=== PATIENT | female | born 1985 | race Caucasian/White ===

== ENCOUNTER 2019-09-24 13:32 | Emergency (ER) | payer OTHER, SELFPAY ==
[2019-09-24 14:53] VITALS: BP 144/98; PULSE 98; RESP 19; TEMP 36.8; O2SAT 98; BMI 49.4
[2019-09-24 14:58] LABS: UTC Strep Screen (Rapid) Negative (Negative)
--- NOTE | 2019-09-24 15:05 | HMH.EDUTC ---
[facility] [place] Clinical Impression: Sinusitis Qualifiers: Sinusitis location: unspecified location Chronicity: unspecified Qualified Code(s): J32.9 - Chronic sinusitis, unspecified Disposition: Home, Self-Care Condition on Discharge: Good Instructions: Sinusitis, Sinus Headache, DI for Sinusitis, Amoxicillin and Clavulanic Acid Additional Instructions: *Monitor Temp, Over the counter Motrin or Tylenol as directed/as needed Tylenol every 4 hours and Motrin every 6 hours (as long as your family doctor has told you that you can take it) for fever or pain. and straight to ER if unable to lower temp less than 101.0 after medication given *Warm salt water gargles may help to soothe the throat *Throat Lozenges *Warm fluids like tea with honey may help to soothe the throat *Sleep elevated *Humidifier/Vaporizer Take medication as prescribed Call back to [facility] for results on your COVID test, Tomorrow or Saturday to see if you test results are back You was given handout with instructions for Quarantine for COVID 19 make sure that you follow those instructions Your throat swab was sent for culture. Those results are typically sent to your primary care. Be sure to follow up in 2-3 days with your family doctor/primary care physician if no improvement so they can review those result and treat if necessary. If you don?t have a primary care doctor, I recommend you get one but in the mean time, you will have to return to a walk in clinic Follow up IMMEDIATELY for new or worsening symptoms or no Noticeable improvement over the next 48-72 hours. 911 for difficulty breathing or swallowing Prescriptions: Amoxicillin/Potassium Clav [Augmentin 875-125 Tablet] 1 tab PO Q12H #1 tab Transmission Status: Pending to [id number] Fluticasone Propionate [Flonase 50mcg nasal spray 16gm] 1 - 2 spr NS DAILY #1 bottle Transmission Status: Pending to [id number] Referrals: Savana Tejeda APRN [Primary Care Provider] - As needed Time of Disposition: 15:15 Medical Decision Making - Jaime Inquiry Pt receiving controlled substance: No Jaime was queried for this patient: No Vital Signs: 09/24/19 14:53 Temperature 98.2 F Temperature Source Oral Pulse Rate [Right Brachial] 98 H Respiratory Rate 19 Blood Pressure [Right Arm] 144/98 H Blood Pressure Mean [Right Arm] 113 Blood Pressure Source [Right Arm] Automatic Cuff Blood Pressure Position [Right Arm] Sitting 02 Sat by Pulse Oximetry 98 Oxygen Delivery Method Room Air - Lab Data Lab results reviewed: Yes: I reviewed the patient's lab results. Lab Results 09/24/19 14:58: Strep Scn Rapid Clinic Negative Orders (Tests/Meds): ORDERS Category Date Time Status Strep Screen Confirmation Stat Micro 09/24/19 14:58 [place] [facility] [place] - General Stated complaint: sore throat runny nose cough ear pain Time Seen by Provider: 09/24/19 15:05 Mode of Arrival: Ambulatory Source of Information: Patient Limitations: No Limitations Description of Symptoms (Recalled from Triage Doc. by RN): PATIENT C/O SORE THROAT, RUNNY NOSE, AND BILATERAL EAR PAIN SINCE YESTERDAY HEENT Symptoms (Recalled from RN notes): Yes Resp Symptoms (Recalled from RN notes): No Skin Symptoms (Recalled from RN notes): No MS Symptoms (Recalled from RN notes): No Functional Status (Recalled from RN notes): WNL - History of Present Illness Provider Complaint: Patient states that she hasnt been feeling well for several days and continued to get worse States that today her throat is worse and feels like she may have strep States that she is having pain and pressure in her sinuses and today she was having some nausea and headache States that she hasnt been around anyone with COVID that she is aware of - Related Data Previous Rx's Medication Instructions Recorded fluticasone propionate 50 1 spray INTRANASAL DAILY #9.9 g 04/17/18 mcg/actuation nasal spray,suspension montelukast 10 mg tablet
[2019-09-24 15:23] VITALS: BP 144/98; PULSE 98; RESP 19; TEMP 36.8; O2SAT 98
[2019-09-26 12:56] LABS: Covid-19 Nasal PCR Sendout Lex Not Detected
== END 2019-09-24 15:30 | disposition home or self-care (01) ==
PROVIDERS: Emergency Provider Nurse Practitioner; PCP Nurse Practitioner Family
DX: J32.9 Chronic sinusitis, unspecified (principal)
CPT/HCPCS: 87880; 99202; U0004

== ENCOUNTER 2021-03-14 11:00 | Outpatient (RCR) | payer OTHER, SELFPAY | END 2021-04-17 08:28 | disposition home or self-care (01) | LOC: PT.CARL 11:00 | PROVIDERS: PCP Nurse Practitioner Family; Visit Provider Orthopaedic Surgery Adult Reconstructive Orthopaedic Surgery | DX: S83.206D Unspecified tear of unspecified meniscus, current injury, right knee, subsequent encounter (principal) | CPT/HCPCS: 97010; 97014; 97110; 97163; 97164; G0283 ==

== ENCOUNTER 2022-02-07 10:44 | Emergency (ER) | payer OTHER, SELFPAY ==
[2022-02-07 11:50] VITALS: BP 149/92; PULSE 101; RESP 18; TEMP 36.6; O2SAT 98; BMI 51.1
--- NOTE | 2022-02-07 12:15 | EXP.UTC ---
Discharge Plan Disposition Patient Disposition: Home, Self-Care Condition: Good Prescriptions Prescriptions: New oseltamivir [Tamiflu] 75 mg capsule 75 mg PO BID 5 Days Qty: 10 0RF No Action metformin 500 mg Tablet 500 mg PO DAILY atorvastatin 20 mg tablet 20 mg PO DAILY hydrochlorothiazide 12.5 mg capsule 12.5 mg PO DAILY oxybutynin chloride 5 mg tablet extended release 24hr 5 mg PO DAILY losartan 100 mg tablet 100 mg PO DAILY Referrals Follow up/Referrals: Provider,Referral, MD [Primary Care Provider] - See instructions Activity Restrictions/Add. Instructions Additional Instructions/Restrictions: *Monitor Temp, Over the counter Motrin or Tylenol as directed/as needed Tylenol every 4 hours and Motrin every 6 hours (as long as your family doctor has told you that you can take it) for fever or pain. and straight to ER if unable to lower temp less than 101.0 after medication given *Warm salt water gargles may help to soothe the throat *Throat Lozenges? *Warm fluids like tea with honey may help to soothe the throat? *Sleep elevated *Humidifier/Vaporizer Over the counter cough medication like Robitussin if you can take it for cough Follow up IMMEDIATELY for new or worsening symptoms or no Noticeable improvement over the next 48-72 hours. 911 for difficulty breathing or swallowing Clinical Impressions Clinical Impression: Flu-like symptoms Instructions Patient Instructions: DI for Influenza -- Adult, DI for Viral Syndrome Discharge ED Provider: Mayra Hair [facility] General Stated complaint: body aches, ear pain, CHATTERJEE Mode of Arrival: Ambulatory Source of Information: Patient Limitations: No Limitations Time Seen by Provider: 02/07/22 12:15 Description of Symptoms (Recalled from Triage Doc. by RN): PATIENT C/O BILATERAL EAR PAIN, BODY ACHES, AND HEADACHE SINCE YESTERDAY. RECENTLY EXPOSED TO FLU HEENT Symptoms (Recalled from RN notes): Yes Resp Symptoms (Recalled from RN notes): No Skin Symptoms (Recalled from RN notes): No MS Symptoms (Recalled from RN notes): No Functional Status (Recalled from RN notes): WNL History of Present Illness Provider Complaint: Patient state that he child was dx with the flu on Saturday States that she has been having body aches, chills, bilateral ear pain, body aches, cough and vomiting on and off States that today she was feeling worse so she came in to get checked out Related Data Home Medications Medication Instructions Recorded Confirmed atorvastatin 20 mg tablet 20 mg PO DAILY Cholesterol 02/07/22 02/07/22 hydrochlorothiazide 12.5 mg capsule 12.5 mg PO DAILY Hypertension 02/07/22 02/07/22 losartan 100 mg tablet 100 mg PO DAILY Hypertension 02/07/22 02/07/22 metformin 500 mg tablet 500 mg PO DAILY Diabetes 02/07/22 02/07/22 oxybutynin chloride 5 mg 5 mg PO DAILY . 02/07/22 02/07/22 tablet,extended release 24 hr Previous Rx's Medication Instructions Recorded oseltamivir 75 mg capsule (Tamiflu) 75 mg PO BID 5 days #10 caps 02/07/22 Allergies Allergy/AdvReac Type Severity Reaction Status Date / Time No Known Allergies Allergy Verified 09/24/19 15:06 Worker's Comp Is this a Worker's Comp case?: No [facility] Disclaimer: The information contained in this section may have been updated after the patient was seen, as this information can be updated by other users. Medical History (Updated 02/07/22 @ 12:43 by Mayra Hair APRN) Diabetes mellitus, type 2 Hypertension Surgical History (Updated 02/07/22 @ 12:11 by Wanda Prater RN) History of cholecystectomy Social History (Updated 02/07/22 @ 12:11 by Wanda Prater RN) Smoking Status: Never smoker alcohol intake: never current occupational status: other Travel in the last 8 weeks: None ROS Obtained: Yes All systems reviewed & no additional complaints except as documented and Yes Systems reviewed as appropriat
[2022-02-07 12:23] LABS: UTC Influenza A Antigen Negative (Negative); UTC Influenza B Antigen Negative (Negative)
[2022-02-07 12:46] VITALS: BP 149/92; PULSE 101; RESP 18; TEMP 36.6; O2SAT 98
== END 2022-02-07 12:58 | disposition home or self-care (01) ==
PROVIDERS: Emergency Provider Nurse Practitioner
DX: J11.1 Influenza due to unidentified influenza virus with other respiratory manifestations (principal); R52 Pain, unspecified; H92.09 Otalgia, unspecified ear; R51.9 Headache, unspecified
CPT/HCPCS: 87804; 99212; G0463

== ENCOUNTER 2022-04-10 09:23 | Emergency (ER) | payer OTHER, SELFPAY ==
[2022-04-10 09:40] VITALS: BP 121/76; PULSE 74; RESP 18; TEMP 36.4; O2SAT 99; BMI 52.2
--- NOTE | 2022-04-10 10:01 | EXP.UTC ---
Discharge Plan Disposition Patient Disposition: Home, Self-Care Condition: Good Prescriptions Prescriptions: New amoxicillin 875 mg tablet 875 mg PO Q12H 10 Days Qty: 20 0RF No Action metformin 500 mg Tablet 500 mg PO DAILY atorvastatin 20 mg tablet 20 mg PO DAILY hydrochlorothiazide 12.5 mg capsule 12.5 mg PO DAILY oxybutynin chloride 5 mg tablet extended release 24hr 5 mg PO DAILY losartan 100 mg tablet 100 mg PO DAILY oseltamivir [Tamiflu] 75 mg capsule 75 mg PO BID 5 Days Qty: 10 0RF ondansetron 4 mg tablet,disintegrating 4 mg PO Q8H PRN (Reason: nausea and vomiting) Qty: 10 0RF Referrals Follow up/Referrals: Iain Alvarez MD [Primary Care Provider] - See instructions Activity Restrictions/Add. Instructions Additional Instructions/Restrictions: *Monitor Temp, Over the counter Motrin or Tylenol as directed/as needed Tylenol every 4 hours and Motrin every 6 hours (as long as your family doctor has told you that you can take it) for fever or pain. and straight to ER if unable to lower temp less than 101.0 after medication given *Warm salt water gargles may help to soothe the throat *Throat Lozenges? *Warm fluids like tea with honey may help to soothe the throat? *Sleep elevated *Humidifier/Vaporizer *If you did not take Penicillin shot or was unable to, start taking antibiotic immediately and make sure that you take it for the FULL length of time although you should start to feel better in 24-48 hours *change toothbrush and toothpaste 24-48 hours after starting to take antibiotics so you do not reinfect yourself Monitor Temp. Tylenol and/or Ibuprofen as needed. ER if fever is no less than 101 despite alternating Tylenol and Ibuprofen * Encourage fluids, water, Gatorade, powerade, pedialyte if /toddler/or child *Cold fluids, popsicles and ice cream may feel good on his throat Follow up IMMEDIATELY for new or worsening symptoms or no Noticeable improvement over the next 48-72 hours. 911 for difficulty breathing or swallowing Clinical Impressions Clinical Impression: Strep throat Instructions Patient Instructions: DI for Strep Throat, Strep Throat Discharge ED Provider: Mayra Hair [facility] [place] HPI General Stated complaint: Ear pain sore throat headache Mode of Arrival: Ambulatory Source of Information: Patient Limitations: No Limitations Time Seen by Provider: 04/10/22 10:02 Description of Symptoms (Recalled from Triage Doc. by RN): PATIENT C/O EAR PAIN, HEADACHE, ITCHY EYES AND SORE THROAT SINCE YESTERDAY HEENT Symptoms (Recalled from RN notes): Yes Resp Symptoms (Recalled from RN notes): No Skin Symptoms (Recalled from RN notes): No MS Symptoms (Recalled from RN notes): No Functional Status (Recalled from RN notes): WNL History of Present Illness Provider Complaint: Patient states that she has been having pain in both ears, sore throat and headache along with itchy watery eyes States that this morning she was still not feeling any better so she came in Related Data Home Medications Medication Instructions Recorded Confirmed atorvastatin 20 mg tablet 20 mg PO DAILY Cholesterol 02/07/22 02/07/22 hydrochlorothiazide 12.5 mg capsule 12.5 mg PO DAILY Hypertension 02/07/22 02/07/22 losartan 100 mg tablet 100 mg PO DAILY Hypertension 02/07/22 04/10/22 metformin 500 mg tablet 500 mg PO DAILY Diabetes 02/07/22 04/10/22 oxybutynin chloride 5 mg 5 mg PO DAILY . 02/07/22 02/07/22 tablet,extended release 24 hr Previous Rx's Medication Instructions Recorded ondansetron 4 mg disintegrating 4 mg PO Q8H PRN nausea and 02/07/22 tablet vomiting #10 tabs oseltamivir 75 mg capsule (Tamiflu) 75 mg PO BID 5 days #10 caps 02/07/22 amoxicillin 875 mg tablet 875 mg PO Q12H 10 days #20 tabs 04/10/22 Allergies Allergy/AdvReac Type Severity Reaction Status Date / Time No Known Allergies Allergy Verified 09/24/19 15:06 Worker's Co
[2022-04-10 10:07] VITALS: BP 121/76; PULSE 74; RESP 18; TEMP 36.4; O2SAT 99
[2022-04-10 10:08] LABS: UTC Strep Screen (Rapid) Positive (Negative)
== END 2022-04-10 10:17 | disposition home or self-care (01) ==
PROVIDERS: Emergency Provider Nurse Practitioner; PCP Family Medicine
DX: J02.0 Streptococcal pharyngitis (principal)
CPT/HCPCS: 87880; 99212; 99213; G0463

== ENCOUNTER → 2022-05-22 13:37 | Outpatient (CLI) | payer OTHER, SELFPAY | PROVIDERS: PCP Nurse Practitioner Family; Visit Provider Nurse Practitioner Family | DX: R11.2 Nausea with vomiting, unspecified (principal); B96.29 Other Escherichia coli [E. coli] as the cause of diseases classified elsewhere; B96.1 Klebsiella pneumoniae [K. pneumoniae] as the cause of diseases classified elsewhere | CPT/HCPCS: 87086; 87088; 87186 ==

== ENCOUNTER → 2022-05-22 23:41 | Outpatient (CLI) | payer OTHER, SELFPAY | PROVIDERS: PCP Nurse Practitioner Family; Visit Provider Nurse Practitioner Family | DX: R11.2 Nausea with vomiting, unspecified (principal) ==

== ENCOUNTER → 2022-06-12 17:25 | Outpatient (CLI) | payer OTHER, SELFPAY ==
[2022-06-12 16:38] LABS: Basophils # 0.1 K/mm3 (0-0.2); Basophils % 1.2 % (0.1-2.0); Eosinophils # 0.3 K/mm3 (0.0-0.4); Eosinophils % 3.3 % (0.1-12.0); Hematocrit 40.9 % (37.0-47.0); Hemoglobin 13.4 g/dL (12.2-16.2); Lymphocytes # 2.2 K/mm3 (0.7-4.5); Lymphocytes % 26.6 % (10-50); Mean Corpuscular HGB Conc 32.6 g/dL (31.8-35.4); Mean Corpuscular Hemoglobin 31.2 pg (27.0-31.2); Mean Corpuscular Volume 95.5 fl (81-99); Mean Platelet Volume 8.1 fl (7.4-10.4); Monocytes # 0.5 K/mm3 (0.1-1.0); Monocytes % 5.5 % (1.7-9.3); Neutrophils # 5.3 K/mm3 (1.8-7.8); Neutrophils % 63.4 % (37.0-80.0); Platelet Count 349 K/mm3 (142-424); Red Blood Count 4.29 M/mm3 (4.20-5.40); Red Cell Distribution Width 13.6 % (11.5-17.5); White Blood Count 8.3 K/mm3 (4.8-10.8)
[2022-06-12 16:42] LABS: Alanine Aminotransferase 49 U/L (12-78); Albumin Level 4.7 g/dl (3.5-5.0); Albumin/Globulin Ratio 1.6 (1.1-1.8); Alkaline Phosphatase 110 U/L (38-126); Anion Gap 16.4 mEq/L (5-15); Aspartate Amino Transferase 47 U/L (14-36); Bilirubin,Total 0.6 mg/dl (0.2-1.3); Blood Urea Nitrogen 12 mg/dl (7-17); Calcium 9.2 mg/dl (8.4-10.2); Carbon Dioxide 23 mmol/L (22.0-30.0); Chloride 102 mmol/L (98-107); Cholesterol 104 mg/dl (140-200); Estimated Glomerular Filt Rate 81 ml/min (>60); GFR (African American) 98 ML/MIN (>60); Globulin 2.9 g/dL (1.3-3.2); Glucose 141 mg/dl (74-100); HDL Cholesterol 35 mg/dl (40-60); Potassium 4.4 mmoL/L (3.5-5.1); Sodium 137 mmol/L (136-145); Total Protein,Serum 7.6 g/dl (6.3-8.2); Triglycerides 164 mg/dl (30-150); VLDL Cholesterol 33 mg/dL (0-40)
[2022-06-12 16:53] LABS: Direct LDL Cholesterol 55.77 mg/dL (100-129)
[2022-06-12 17:06] LABS: Hemoglobin A1C 7.3 % (4.0-6.0)
[2022-06-12 17:12] LABS: Thyroid Stimulating Hormone 1.31 uIU/mL (0.465-4.68)
== END ==
PROVIDERS: PCP Family Medicine; Visit Provider Family Medicine
DX: E11.9 Type 2 diabetes mellitus without complications (principal); I10 Essential (primary) hypertension; Z79.84 Long term (current) use of oral hypoglycemic drugs
CPT/HCPCS: 80053; 80061; 83036; 84443; 85025

== ENCOUNTER → 2022-08-03 23:22 | Outpatient (CLI) | payer OTHER, SELFPAY | PROVIDERS: PCP Nurse Practitioner Family; Visit Provider Nurse Practitioner Family | DX: R10.9 Unspecified abdominal pain (principal); B96.29 Other Escherichia coli [E. coli] as the cause of diseases classified elsewhere; B96.89 Other specified bacterial agents as the cause of diseases classified elsewhere | CPT/HCPCS: 87086; 87088; 87186 ==

== ENCOUNTER 2023-01-23 08:40 | Emergency (ER) | payer OTHER, SELFPAY ==
--- NOTE | 2023-01-23 08:43 | XR_ITS ---
FINAL REPORT CLINICAL HISTORY: pain, no known accident FINDINGS: Right ankle Three views were obtained. There is no acute fracture or dislocation. The joint spaces appear normal. There is soft tissue edema about the ankle. Moderate plantar spur is identified. IMPRESSION: Soft tissue edema and moderate plantar spur. Reviewed, Interpreted and Dictated by Олег Snell MD Transcribed by Audrey Martinez Authenticated and . [facility]
[2023-01-23 08:50] VITALS: BP 159/97; PULSE 83; RESP 18; TEMP 36.8; O2SAT 100; BMI 52.2
--- NOTE | 2023-01-23 09:28 | EXP.UTC ---
Discharge Plan Disposition Patient Disposition: Home, Self-Care Condition: Good Prescriptions Prescriptions: New prednisone [prednisone] 20 mg tablet 20 mg PO BID Qty: 10 0RF No Action hydrochlorothiazide 12.5 mg capsule 12.5 mg PO DAILY Qty: 30 4RF triamcinolone acetonide 0.5 % cream 1 applic topical BID Qty: 15 2RF losartan 100 mg tablet 100 mg PO DAILY Qty: 30 2RF ondansetron 4 mg tablet,disintegrating 4 mg PO Q8H PRN (Reason: nausea and vomiting) Qty: 20 1RF ibuprofen 600 mg tablet See Rx Instructions .ROUTE .COMPLEX Qty: 90 0RF Dose Instruction: TAKE 1 TABLET BY MOUTH THREE TIMES A DAY Rx Instructions: TAKE 1 TABLET BY MOUTH THREE TIMES A DAY cetirizine 10 mg tablet See Rx Instructions .ROUTE .COMPLEX Qty: 30 1RF Dose Instruction: TAKE 1 TABLET BY MOUTH DAILY NEEDED FOR ALLERGY SYMPTOMS FOR 30 DAYS Rx Instructions: TAKE 1 TABLET BY MOUTH DAILY NEEDED FOR ALLERGY SYMPTOMS FOR 30 DAYS acetaminophen 325 mg tablet See Rx Instructions .ROUTE .COMPLEX Qty: 120 0RF Dose Instruction: TAKE 2 TABLETS BY MOUTH FOUR TIMES A DAY NEEDED FOR PAIN Rx Instructions: TAKE 2 TABLETS BY MOUTH FOUR TIMES A DAY NEEDED FOR PAIN oxybutynin chloride 5 mg tablet extended release 24hr See Rx Instructions .ROUTE .COMPLEX Qty: 30 0RF Dose Instruction: TAKE 1 TABLET BY MOUTH ONCE DAILY Rx Instructions: TAKE 1 TABLET BY MOUTH ONCE DAILY tizanidine 4 mg tablet See Rx Instructions .ROUTE .COMPLEX Qty: 20 0RF Dose Instruction: TAKE 1 TABLET BY MOUTH TWICE DAILY NEEDED FOR MUSCLE SPASMS Rx Instructions: TAKE 1 TABLET BY MOUTH TWICE DAILY NEEDED FOR MUSCLE SPASMS colestipol 1 gram tablet See Rx Instructions .ROUTE .COMPLEX Qty: 60 0RF Dose Instruction: TAKE 1 TABLET BY MOUTH TWICE A DAY FOR 30 DAYS Rx Instructions: TAKE 1 TABLET BY MOUTH TWICE A DAY FOR 30 DAYS metformin 500 mg tablet extended release 24 hr See Rx Instructions .ROUTE .COMPLEX Qty: 120 0RF Dose Instruction: TAKE 2 TABLETS TWICE A DAY FOR DIABETES FOR 30 DAYS Rx Instructions: TAKE 2 TABLETS TWICE A DAY FOR DIABETES FOR 30 DAYS atorvastatin 20 mg tablet See Rx Instructions .ROUTE .COMPLEX Qty: 30 0RF Dose Instruction: TAKE 1 TABLET BY MOUTH AT BEDTIME NIGHTLY FOR 30 DAYS Rx Instructions: TAKE 1 TABLET BY MOUTH AT BEDTIME NIGHTLY FOR 30 DAYS Referrals Follow up/Referrals: Edi Rees MD [Primary Care Provider] - See instructions Activity Restrictions/Add. Instructions Additional Instructions/Restrictions: Weight bearing as tolerated rest Ice with cold pack for 20 minutes remove may repeat for comfort every hour Elevate with ankle above your heart as much as possible to help reduce swelling and therefore pain Ibuprofen every 6 hours as needed for pain or inflammation. If needs something more you can take Tylenol every 4 hours as needed as long as her primary care has told he was okayed for you to take both. If improving any do not need to follow-up you can bring begin exercising 2-3 weeks after injury. Follow-up immediately if new or worsening symptoms or no noticeable improvement over the next 3-5 days. call ortho for appointment Clinical Impressions Clinical Impression: Acute ankle pain Qualifiers: Laterality: right Qualified Code(s): M25.571 - Pain in right ankle and joints of right foot Instructions Patient Instructions: DI for Ankle Pain Discharge ED Provider: Amilcar ([facility])Dante [facility] [place] General Stated complaint: Rt ankle pain, no accident Mode of Arrival: Ambulatory Source of Information: Patient Limitations: No Limitations Time Seen by Provider: 01/23/23 09:28 Description of Symptoms (Recalled from Triage Doc. by RN): Pt stated that her right ankle if very tight and feels like she cannot put a whole lot of weight on it. HEENT Symptoms (Recalled from RN notes): Y
[2023-01-23 10:00] VITALS: BP 159/97; PULSE 83; RESP 18; TEMP 36.8; O2SAT 100
== END 2023-01-23 10:00 | disposition home or self-care (01) ==
PROVIDERS: Emergency Provider Nurse Practitioner Family; PCP Family Medicine
DX: M25.571 Pain in right ankle and joints of right foot (principal); E11.9 Type 2 diabetes mellitus without complications; I10 Essential (primary) hypertension; Z79.84 Long term (current) use of oral hypoglycemic drugs
CPT/HCPCS: 73610; 99212; 99214; G0463

== ENCOUNTER → 2023-01-28 16:00 | Outpatient (CLI) | payer OTHER, SELFPAY | PROVIDERS: PCP Nurse Practitioner Family; Visit Provider Nurse Practitioner Family | DX: R05.9 Cough, unspecified (principal) | CPT/HCPCS: 87635 ==

== ENCOUNTER 2023-04-12 22:14 | Outpatient (CLI) | payer OTHER, SELFPAY | END 2023-04-12 23:59 | LOC: LAB.DROPOF 22:14 | PROVIDERS: PCP Nurse Practitioner Family; Visit Provider Nurse Practitioner Family | DX: R10.9 Unspecified abdominal pain (principal); B96.89 Other specified bacterial agents as the cause of diseases classified elsewhere | CPT/HCPCS: 87086 ==

== ENCOUNTER 2023-05-30 18:59 | Outpatient (CLI) | payer OTHER, SELFPAY ==
[2023-05-30 16:34] LABS: Chloride 103 mmol/L (98-107); Potassium 4.6 mmoL/L (3.5-5.1); Sodium 138 mmol/L (136-145)
[2023-05-30 16:36] LABS: Blood Urea Nitrogen 28 mg/dl (7-17); Estimated Glomerular Filt Rate 30 ml/min (>60); GFR (African American) 36 ML/MIN (>60)
[2023-05-30 16:37] LABS: Alanine Aminotransferase 27 U/L (12-78); Albumin Level 4.3 g/dl (3.5-5.0); Albumin/Globulin Ratio 1.3 (1.1-1.8); Alkaline Phosphatase 139 U/L (38-126); Anion Gap 17.6 mEq/L (5-15); Aspartate Amino Transferase 23 U/L (14-36); Bilirubin,Total 1.2 mg/dl (0.2-1.3); Carbon Dioxide 22 mmol/L (22.0-30.0); Globulin 3.3 g/dL (1.3-3.2); Glucose 165 mg/dl (74-100); Total Protein,Serum 7.6 g/dl (6.3-8.2)
[2023-05-30 16:39] LABS: Basophils # 0.2 K/mm3 (0-0.2); Basophils % 1.3 % (0.1-2.0); Eosinophils # 0.1 K/mm3 (0.0-0.4); Eosinophils % 0.6 % (0.1-12.0); Hematocrit 38.1 % (37.0-47.0); Hemoglobin 12.1 g/dL (12.2-16.2); Lymphocytes # 2.2 K/mm3 (0.7-4.5); Lymphocytes % 16.1 % (10-50); Mean Corpuscular HGB Conc 31.9 g/dL (31.8-35.4); Mean Corpuscular Hemoglobin 31.9 pg (27.0-31.2); Mean Corpuscular Volume 99.9 fl (81-99); Mean Platelet Volume 8.9 fl (7.4-10.4); Monocytes # 0.8 K/mm3 (0.1-1.0); Monocytes % 5.4 % (1.7-9.3); Neutrophils # 10.6 K/mm3 (1.8-7.8); Neutrophils % 76.6 % (37.0-80.0); Platelet Count 362 K/mm3 (142-424); Red Blood Count 3.81 M/mm3 (4.20-5.40); Red Cell Distribution Width 14.3 % (11.5-17.5); White Blood Count 13.8 K/mm3 (4.8-10.8)
[2023-05-30 17:05] LABS: Thyroid Stimulating Hormone 1.39 uIU/mL (0.465-4.68)
[2023-05-30 19:08] LABS: Hemoglobin A1C 7.6 % (4.0-6.0)
== END 2023-05-30 23:59 ==
LOC: LAB.DROPOF 18:59
PROVIDERS: PCP Nurse Practitioner Family; Visit Provider Nurse Practitioner Family
DX: N39.0 Urinary tract infection, site not specified (principal); M54.50 Low back pain, unspecified; E11.69 Type 2 diabetes mellitus with other specified complication; B96.29 Other Escherichia coli [E. coli] as the cause of diseases classified elsewhere; B96.1 Klebsiella pneumoniae [K. pneumoniae] as the cause of diseases classified elsewhere; Z79.899 Other long term (current) drug therapy
CPT/HCPCS: 80053; 83036; 84443; 85025; 87086

== ENCOUNTER 2023-05-31 10:37 | Emergency (ER) | payer OTHER, SELFPAY ==
[2023-05-31 10:39] VITALS: BP 120/68; PULSE 95; RESP 15; TEMP 36.9; O2SAT 98; BMI 47.1
[2023-05-31 10:53] LABS: Microscopic, Urine URINE MICROSCOPIC (MICROSCOPIC)
[2023-05-31 10:55] LABS: Appearance,Urine CLOUDY (Clear); Blood, Urine 1+ (Negative); Color,Urine YELLOW (Yellow); Glucose,Urine (UA) Negative (Negative); Ketones,Urine Negative (Negative); Leukocyte Esterase,Urine 2+ (Negative); Nitrate,Urine Negative (Negative); Protein,Urine 2+ (Negative); Specific Gravity, Urine 1.025 (1.005-1.030); Urobilinogen,Urine 0.2 EU/dl (0.2)
--- NOTE | 2023-05-31 10:57 | HMH.EDGENADL ---
Discharge Plan Disposition Patient Disposition: Xfer Other Chief Complaint: Nausea/Vomiting/Diarrhea Prescriptions Prescriptions: No Action hydrochlorothiazide 12.5 mg capsule 12.5 mg PO DAILY Qty: 30 4RF albuterol sulfate 90 mcg/actuation HFA aerosol inhaler 1 inh inhalation QID Qty: 6.7 2RF fluconazole 150 mg tablet 150 mg PO Q3D 0 Days Qty: 2 0RF Rx Instructions: may repeat second dose 72 hrs after first dose if symptoms persist sulfamethoxazole-trimethoprim [Bactrim DS] 800-160 mg tablet 1 tab PO BID 10 Days Qty: 20 0RF levocetirizine 5 mg tablet 5 mg PO DAILY Qty: 30 2RF oxybutynin chloride 5 mg tablet extended release 24hr See Rx Instructions .ROUTE .COMPLEX Qty: 30 1RF Dose Instruction: TAKE 1 TABLET BY MOUTH ONCE DAILY Rx Instructions: TAKE 1 TABLET BY MOUTH ONCE DAILY colestipol 1 gram tablet See Rx Instructions .ROUTE .COMPLEX Qty: 60 1RF Dose Instruction: TAKE 1 TABLET BY MOUTH TWICE A DAY FOR 30 DAYS Rx Instructions: TAKE 1 TABLET BY MOUTH TWICE A DAY FOR 30 DAYS acetaminophen 325 mg tablet See Rx Instructions .ROUTE .COMPLEX Qty: 120 1RF Dose Instruction: TAKE 2 TABLETS BY MOUTH FOUR TIMES A DAY NEEDED FOR PAIN Rx Instructions: TAKE 2 TABLETS BY MOUTH FOUR TIMES A DAY NEEDED FOR PAIN tizanidine 4 mg tablet See Rx Instructions .ROUTE .COMPLEX Qty: 20 1RF Dose Instruction: TAKE 1 TABLET BY MOUTH TWICE DAILY NEEDED FOR MUSCLE SPASMS Rx Instructions: TAKE 1 TABLET BY MOUTH TWICE DAILY NEEDED FOR MUSCLE SPASMS atorvastatin 20 mg tablet See Rx Instructions .ROUTE .COMPLEX Qty: 30 1RF Dose Instruction: TAKE 1 TABLET BY MOUTH AT BEDTIME NIGHTLY FOR 30 DAYS Rx Instructions: TAKE 1 TABLET BY MOUTH AT BEDTIME NIGHTLY FOR 30 DAYS metformin 500 mg tablet extended release 24 hr See Rx Instructions .ROUTE .COMPLEX Qty: 120 1RF Dose Instruction: TAKE 2 TABLETS TWICE A DAY FOR DIABETES FOR 30 DAYS Rx Instructions: TAKE 2 TABLETS TWICE A DAY FOR DIABETES FOR 30 DAYS losartan 100 mg tablet 100 mg PO DAILY Qty: 30 1RF ibuprofen 600 mg tablet 600 mg PO TID Qty: 90 2RF Referrals Follow up/Referrals: Lesley Pena APRN [Primary Care Provider] - See instructions Clinical Impressions Clinical Impression: TERE (acute kidney injury), UTI (urinary tract infection) Instructions Patient Instructions: DI for Diarrhea and Traveler's Diarrhea -- Adult, DI for Diarrhea and Traveler's Diarrhea -- Child, DI for Nausea -- Adult, DI for Nausea -- Child Discharge ED Provider: Brandie Begum General Adult HPI General Chief complaint: Nausea/Vomiting/Diarrhea Stated complaint: fluids for kidney function, sent by WINSTON Cooley Time Seen by Provider: 05/31/23 10:40 Mode of Arrival: Ambulatory Source of Information: Patient Limitations: No Limitations Description of Symptoms (Recalled from ER Triage Doc. by RN): pt was sent to ED for further evaluation for kidney infection, abnormal blood work. pt was seen by pcp yesterday, diagnosed with kidney infection and started on bactrum. pt reports symptoms ongoing for the past 2 days. pt did have blood work done at pcp office and labs were abnormal. pt reports lower back pain. nausea, vomitting. History of Present Illness HPI narrative: Patient is a 37-year-old female presenting today with abnormal lab test. She started feeling ill on Saturday evening and morning with associated nausea and vomiting and weakness. She went to her primary care doctor yesterday had a urinalysis which demonstrated urinary tract infection was started on Bactrim had blood test that were drawn which demonstrated a creatinine of 1.9 and she was sent to the emergency department. We are unsure of her baseline creatinine. She states that her nausea vomiting has since improved but she still is symptomatic from a weakness standpoint. She also states that she needs to be able to be discharged to go pick and shovel man her child from school today as she is a single parent and she prefers to not be admitted in the hospital. Related Data Previous Rx's Medication Instructions Recorded hydrochlorothiazide 12.5 mg capsule 12.5 mg PO DAILY Hypertension #30 06/12/22 caps albuterol sulfate 90 mcg/actuation 1 inh inhalation QID #6.7 grams 01/28/23 aerosol inhaler acetaminophen 325 mg tablet See Rx Instructions .Route 04/29/23 .COMPLEX #120 tabs atorvastatin 20 mg tablet See Rx Instructions .Route 04/29/23 .COMPLEX #30 tabs colestipol 1 gram tablet See Rx Instructions .Route 04/29/23 .COMPLEX #60 tabs losartan 100 mg tablet 100 mg PO DAILY Hypertension #30 02/19/24 tabs metformin 500 mg tablet,extended See Rx Instructions .Route 04/29/23 release 24 hr .COMPLEX #120 tabs oxybutynin chloride 5 mg See Rx Instructions .Route 04/29/23 tablet,extended release 24 hr .COMPLEX #30 tabs tizanidine 4 mg tablet See Rx Instructions .Route 04/29/23 .COMPLEX #20 tabs ibuprofen 600 mg tablet 600 mg PO TID #90 tabs 05/06/23 fluconazole 150 mg tablet 150 mg PO Q3D 2 doses #2 tabs 05/30/23 levocetirizine 5 mg tablet 5 mg PO DAILY #30 tabs 05/30/23 sulfamethoxazole 800 1 tab PO BID 10 days #20 tabs 05/30/23 mg-trimethoprim 160 mg tablet (Bactrim DS) Allergies Allergy/AdvReac Type Severity Reaction Status Date / Time No Known Allergies Allergy Verified 05/31/23 10:49 [facility] Disclaimer: The information contained in this section may have been updated after the patient was seen, as this information can be updated by other users. Medical History Anxiety Urinary tract infection Kidney stone Migraine Diabetes mellitus, type 2 Hypertension Surgical History History of knee surgery History of cholecystectomy Family History Mother Diabetes Grandmother Diabetes Hypertension Stroke Grandfather Heart attack Social History Smoking Status: Never smoker alcohol intake: never substance use type: denies use current occupational status: employed Travel in the last 8 weeks: None household members: children housing: house ROS Obtained: Yes All systems reviewed & no additional complaints except as documented Physical Exam General General appearance: alert and in no apparent distress Respiratory Respiratory exam: Present normal lung sounds bilaterally and respiratory distress Cardiovascular Cardiovascular exam: Present regular rate, normal rhythm and other (Delayed capillary refill dry mucous membranes) Abdominal Exam Abdominal exam: Present soft; Absent distention or tenderness Neurological Exam Neurological exam: Present alert and oriented X3 Medical Decision Making Jaime Inquiry Pt receiving controlled substance: No Vital Signs: 05/31/23 10:39 05/31/23 11:30 05/31/23 12:01 Temperature 98.5 F Temperature Source Oral Pulse Rate 81 86 Pulse Rate [Left Radial] 95 H Respiratory Rate 15 20 Blood Pressure 112/55 L 130/58 L Blood Pressure [Right Arm] 120/68 Blood Pressure Mean 66 71 Blood Pressure Mean [Right Arm] 85 02 Sat by Pulse Oximetry 98 97 95 Oxygen Delivery Method Room Air Room Air Lab Data Lab results reviewed: Yes I reviewed the patient's lab results. Lab Results 05/31/23 10:50: Urine Color Yellow, Urine Appearance Cloudy, Urine pH 6.0, Ur Specific [place] 1.025, Urine Protein 2+, Urine Glucose (UA) Negative, Urine Ketones Negative, Urine Blood 1+, Urine Nitrate Negative, Urine Bilirubin 1+ A, Urine Urobilinogen 0.2, Ur Leukocyte Esterase 2+ A, Urine RBC 3-5, Urine WBC 20-50, Ur Squamous Epith Cells 3-5, Urine Bacteria 2+ 05/31/23 11:00: WBC 11.9 H, RBC 3.74 L, Hgb 11.8 L, Hct 37.2, MCV 99.4 H, MCH 31.5 H, MCHC 31.7 L, RDW 14.3, Plt Count 305, MPV 8.0, Neut % (Auto) 81.5 H, Lymph % (Auto) 11.7, [place] % (Auto) 4.8, Eos % (Auto) 1.0, Baso % (Auto) 1.0, Neut # (Auto) 9.7 H, Lymph # (Auto) 1.4, [place] # (Auto) 0.6, Eos # (Auto) 0.1, Baso # (Auto) 0.1, Sodium 138, Potassium 4.7, Chloride 100, Carbon Dioxide 24, Anion Gap 18.7 H, BUN 49 H D, Creatinine 4.90 H D, Estimated Creat Clear 15, Estimated GFR 10 L*, Est GFR ( Amer) 12 L* D, Glucose 149 H, Calcium 9.8, Phosphorus 7.2 H, Magnesium 1.3 L, Total Bilirubin 0.8, AST 21, ALT 25, Alkaline Phosphatase 120, Total Creatine Kinase 69, Total Protein 8.0, Albumin 4.3, Globulin 3.7 H, Albumin/Globulin Ratio 1.2 05/31/23 11:00 05/31/23 11:00 Orders (Tests/Meds): ED MEDICATIONS Generic Name Dose Route Start Last Admin Trade Name Freq PRN Reason Stop Dose Admin Sodium Chloride 10 ml 05/31/23 11:05 Sodium Chloride 0.9% 10ml Flush Syringe IV 06/30/23 11:04 NEEDED PRN Maintain IV Site Discontinued Medications Generic Name Dose Route Start Last Admin Trade Name Jordan PRN Reason Stop Dose Admin Lactated Ringer's 1,000 mls @ 999 mls/hr 05/31/23 11:00 05/31/23 11:05 Lactated Ringer's 1000 Ml Bag IV 05/31/23 12:00 999 mls/hr .Q1H1M GURPREET Administration Ceftriaxone Sodium 1 gm/ 50 mls @ 100 mls/hr 05/31/23 11:45 05/31/23 11:56 Sodium Chloride IV 05/31/23 12:14 100 mls/hr ONCE ONE Administration Ondansetron HCl 4 mg 05/31/23 10:48 05/31/23 11:05 Ondansetron 4mg/2ml Vial IV 05/31/23 10:49 4 mg ONCE ONE Administration ORDERS Category Date Time Status CBC w/Auto Diff [Complete Blood Count Auto Diff] Stat Lab 05/31/23 11:00 Completed CK [Creatine Kinase] Stat Lab 05/31/23 11:00 Completed CMP [Comprehensive Metabolic Panel] Stat Lab 05/31/23 11:00 Completed Magnesium Stat Lab 05/31/23 11:00 Completed Phosphorous Stat Lab 05/31/23 11:00 Completed UA [Urinalysis and Microscopic] Stat Lab 05/31/23 10:50 Completed Medical Decision Narrative: 37-year-old with above history. I suspect she had prerenal acute kidney injury from volume losses associated with nausea and vomiting. She has benign abdominal exam at this point not consistent with a surgical emergency. Still possible she has some metabolic abnormalities in addition to renal insufficiency which we will recheck. IV fluids will be administered. I will discuss with her further disposition once I have more objective information. Assessment 1 PM patient still has what appears to be urinary tract infection however given the fact that she does not have symptoms of this questionable but we will err on the side of treatment. Rocephin has been administered in the ED. Creatinine unfortunately has gone from 1.9-4.9 overnight. BUN/creatinine ratio is only 10 I am concerned she has ATN superimposed on prerenal azotemia. I did speak with her hospital medicine doctor and based on the fact that we do not have nephrology here and patient will likely need consultation with nephrology we transferred the patient to [place]. I spoke with Dr. Charlie Song who accepted the patient for further evaluation and management. Patient was aware of this and agreeable to this plan. Critical Care Critical Care Time Critical Care Time: Yes Attestation: On 05/31/23, the high probability of a clinically significant, sudden or life threatening deterioration of the following system(s) required my full and direct attention, intervention and personal management. The time I documented below is in addition to time spent performing reported procedures but includes the following listed in this critical care notation. Total Time Total Critical Care Time: 35
[2023-05-31 11:01] LABS: Bilirubin,Urine 1+ (Negative)
[2023-05-31 11:02] LABS: Bacteria,Urine 2+ /lpf; WBC,Urine 20-50 #/hpf (0-3)
[2023-05-31] MEDS: LACTATED RINGERS 1000ML 1,000 ML 999 ML IV (11:05)
[2023-05-31] MEDS: ONDANSETRON 4MG/2ML VIAL 4 MG IV (11:05)
[2023-05-31 11:11] LABS: Basophils # 0.1 K/mm3 (0-0.2); Eosinophils # 0.1 K/mm3 (0.0-0.4); Hematocrit 37.2 % (37.0-47.0); Hemoglobin 11.8 g/dL (12.2-16.2); Lymphocytes # 1.4 K/mm3 (0.7-4.5); Lymphocytes % 11.7 % (10-50); Mean Corpuscular HGB Conc 31.7 g/dL (31.8-35.4); Mean Corpuscular Hemoglobin 31.5 pg (27.0-31.2); Mean Corpuscular Volume 99.4 fl (81-99); Monocytes # 0.6 K/mm3 (0.1-1.0); Monocytes % 4.8 % (1.7-9.3); Neutrophils # 9.7 K/mm3 (1.8-7.8); Neutrophils % 81.5 % (37.0-80.0); Platelet Count 305 K/mm3 (142-424); Red Blood Count 3.74 M/mm3 (4.20-5.40); Red Cell Distribution Width 14.3 % (11.5-17.5); White Blood Count 11.9 K/mm3 (4.8-10.8)
[2023-05-31 11:15] LABS: Chloride 100 mmol/L (98-107); Potassium 4.7 mmoL/L (3.5-5.1); Sodium 138 mmol/L (136-145)
[2023-05-31 11:18] LABS: Alanine Aminotransferase 25 U/L (12-78); Albumin Level 4.3 g/dl (3.5-5.0); Albumin/Globulin Ratio 1.2 (1.1-1.8); Alkaline Phosphatase 120 U/L (38-126); Anion Gap 18.7 mEq/L (5-15); Aspartate Amino Transferase 21 U/L (14-36); Bilirubin,Total 0.8 mg/dl (0.2-1.3); Blood Urea Nitrogen 49 mg/dl (7-17); Calcium 9.8 mg/dl (8.4-10.2); Carbon Dioxide 24 mmol/L (22.0-30.0); Creatine Kinase 69 U/L (30-135); Creatinine Clearance Estimated 15 mL/min (50-200); Estimated Glomerular Filt Rate 10 ml/min (>60); GFR (African American) 12 ML/MIN (>60); Globulin 3.7 g/dL (1.3-3.2); Glucose 149 mg/dl (74-100); Phosphorous 7.2 mg/dl (2.5-4.5)
[2023-05-31 11:19] LABS: Magnesium 1.3 mg/dl (1.6-2.3)
[2023-05-31 11:30] VITALS: BP 112/55; PULSE 81; RESP 20; O2SAT 97
--- NOTE | 2023-05-31 11:43 | PC.NURSE ---
Dr. Begum at bedside to discuss results
--- NOTE | 2023-05-31 11:48 | PC.NURSE ---
placed call to [facility] for transfer to [place] for nephrology
[2023-05-31] MEDS: CEFTRIAXONE SODIUM 1 GM in 0.9 % SODIUM CHLORIDE 50 ML IV (11:56)
[2023-05-31 12:01] VITALS: BP 130/58; PULSE 86; O2SAT 95
--- NOTE | 2023-05-31 12:58 | PC.NURSE ---
Addendum entered by Caroline Ricks, EMT 05/31/23 12:59: at 1244 Original Note: Dr Begum spoke with [facility]
[2023-05-31 13:00] VITALS: BP 116/81; PULSE 83; RESP 20; O2SAT 99
--- NOTE | 2023-05-31 13:29 | PC.NURSE ---
report called to [facility]
[2023-05-31 13:37] VITALS: BP 116/81; PULSE 89; RESP 16; TEMP 36.7; O2SAT 97
== END 2023-05-31 13:39 | disposition other institution (70) ==
PROVIDERS: Emergency Provider Student in an Organized Health Care Education/Training Program; PCP Nurse Practitioner Family
DX: N17.9 Acute kidney failure, unspecified (principal); N39.0 Urinary tract infection, site not specified; M54.50 Low back pain, unspecified; R11.2 Nausea with vomiting, unspecified; E11.9 Type 2 diabetes mellitus without complications; I10 Essential (primary) hypertension
CPT/HCPCS: 80053; 81001; 82550; 83735; 84100; 85025; 96361; 96365; 96375; 99291; J0696; J2405

== ENCOUNTER 2023-07-29 16:19 | Outpatient (CLI) | payer OTHER, SELFPAY ==
[2023-07-29 16:22] LABS: Basophils # 0.1 K/mm3 (0-0.2); Basophils % 0.9 % (0.1-2.0); Eosinophils # 0.3 K/mm3 (0.0-0.4); Eosinophils % 3.1 % (0.1-12.0); Hematocrit 38.2 % (37.0-47.0); Hemoglobin 12.4 g/dL (12.2-16.2); Lymphocytes # 1.8 K/mm3 (0.7-4.5); Lymphocytes % 21.8 % (10-50); Mean Corpuscular HGB Conc 32.4 g/dL (31.8-35.4); Mean Corpuscular Volume 95.5 fl (81-99); Mean Platelet Volume 8.2 fl (7.4-10.4); Monocytes # 0.4 K/mm3 (0.1-1.0); Monocytes % 4.8 % (1.7-9.3); Neutrophils # 5.8 K/mm3 (1.8-7.8); Neutrophils % 69.4 % (37.0-80.0); Platelet Count 283 K/mm3 (142-424); Red Cell Distribution Width 16.2 % (11.5-17.5); White Blood Count 8.3 K/mm3 (4.8-10.8)
[2023-07-29 17:13] LABS: Chloride 104 mmol/L (98-107); Potassium 4.6 mmoL/L (3.5-5.1); Sodium 138 mmol/L (136-145)
[2023-07-29 17:15] LABS: Blood Urea Nitrogen 19 mg/dl (7-17); Estimated Glomerular Filt Rate 62 ml/min (>60); GFR (African American) 75 ML/MIN (>60)
[2023-07-29 17:16] LABS: Alanine Aminotransferase 36 U/L (12-78); Albumin Level 4.2 g/dl (3.5-5.0); Albumin/Globulin Ratio 1.3 (1.1-1.8); Alkaline Phosphatase 129 U/L (38-126); Anion Gap 14.6 mEq/L (5-15); Aspartate Amino Transferase 32 U/L (14-36); Bilirubin,Total 0.5 mg/dl (0.2-1.3); Calcium 9.7 mg/dl (8.4-10.2); Carbon Dioxide 24 mmol/L (22.0-30.0); Chol/HDL Ratio 2.3 (1-3.5); Cholesterol 125 mg/dl (140-200); Globulin 3.2 g/dL (1.3-3.2); Glucose 134 mg/dl (74-100); HDL Cholesterol 55 mg/dl (40-60); Total Protein,Serum 7.4 g/dl (6.3-8.2); Triglycerides 136 mg/dl (30-150); VLDL Cholesterol 27 mg/dL (0-40)
[2023-07-29 17:28] LABS: Direct LDL Cholesterol 62.83 mg/dL (100-129)
[2023-07-29 17:47] LABS: Thyroid Stimulating Hormone 2.24 uIU/mL (0.465-4.68)
[2023-07-29 22:04] LABS: Hemoglobin A1C 6.5 % (4.0-6.0)
== END 2023-07-29 23:59 | disposition home or self-care (01) ==
LOC: LAB.DROPOF 16:20
PROVIDERS: PCP Family Medicine; Visit Provider Family Medicine
DX: E11.69 Type 2 diabetes mellitus with other specified complication (principal); Z79.84 Long term (current) use of oral hypoglycemic drugs; Z79.899 Other long term (current) drug therapy
CPT/HCPCS: 36415; 80053; 80061; 83036; 84443; 85025

== ENCOUNTER 2023-09-02 16:47 | Outpatient (CLI) | payer OTHER, SELFPAY | END 2023-09-02 23:59 | disposition home or self-care (01) | LOC: LAB.DROPOF 16:48 | PROVIDERS: PCP Nurse Practitioner Family; Visit Provider Nurse Practitioner Family | DX: R39.9 Unspecified symptoms and signs involving the genitourinary system (principal); B96.89 Other specified bacterial agents as the cause of diseases classified elsewhere | CPT/HCPCS: 87086; 87088 ==

== ENCOUNTER 2023-09-09 11:35 | Emergency (ER) | payer OTHER, SELFPAY ==
[2023-09-09 11:39] VITALS: BMI 41.5
--- NOTE | 2023-09-09 11:39 | XR_ITS ---
FINAL REPORT CLINICAL HISTORY: INJURY, PAIN MEDIAL MALLEOLUS FINDINGS: LEFT FOOT Three views of the left foot demonstrate no acute fracture or dislocation. The visualized joint spaces are normally aligned. There are mild degenerative changes with calcaneal spurs. The soft tissues are unremarkable. IMPRESSION: No acute bony abnormality. Reviewed, Interpreted and Dictated by Arie Isaac III, MD Transcribed by Joanna Linares Authenticated and [facility]
--- NOTE | 2023-09-09 11:39 | XR_ITS ---
FINAL REPORT CLINICAL HISTORY: INJURY, PAIN MEDIAL MALLEOLUS FINDINGS: LEFT ANKLE Three views demonstrate no acute fracture or dislocation. The visualized joint spaces are normally aligned. There are calcaneal spurs with mild degenerative changes. The soft tissues are unremarkable. IMPRESSION: No acute bony abnormality. Reviewed, Interpreted and Dictated by Arie Isaac III, MD Transcribed by Joanna Linares Authenticated and [facility]
[2023-09-09 11:40] VITALS: BP 145/96; PULSE 82; RESP 20; TEMP 36.5; O2SAT 98; BMI 48.7
--- NOTE | 2023-09-09 12:24 | ED_ITS ---
Discharge Plan Disposition Patient Disposition: Home, Self-Care Condition: Good Prescriptions Prescriptions: No Action atorvastatin 20 mg tablet 20 mg PO DAILY cetirizine 10 mg tablet 10 mg PO DAILY nystatin 100,000 unit/gram ointment 1 applic TOPICAL DAILY tizanidine 4 mg tablet 4 mg PO DAILY oxybutynin chloride 5 mg tablet extended release 24hr 5 mg PO DAILY ibuprofen 600 mg tablet 600 mg PO DAILY cefdinir 300 mg capsule 300 mg PO BID losartan 100 mg tablet 100 mg PO DAILY metformin 500 mg tablet extended release 24 hr 500 mg PO DAILY colestipol 1 gram tablet 1 g PO DAILY levocetirizine 5 mg tablet 5 mg PO DAILY Referrals Follow up/Referrals: Edi Rees MD [Primary Care Provider] - See instructions Activity Restrictions/Add. Instructions Additional Instructions/Restrictions: If symptoms persist or worse, return to clinic or follow up with PCP. Call for x-ray results. Clinical Impressions Clinical Impression: Acute pain of left foot Instructions Patient Instructions: DI for Foot Pain Discharge ED Provider: Wendy Anderson [facility] General Stated complaint: Twisted ankle ao 09/06 Mode of Arrival: Ambulatory Source of Information: Patient Limitations: No Limitations Time Seen by Provider: 09/09/23 11:45 Description of Symptoms (Recalled from Triage Doc. by RN): PATIENT C/O PAIN AND SWELLING TO LEFT FOOT AND ANKLE AFTER TWISTING IT 2 DAYS AGO HEENT Symptoms (Recalled from RN notes): No Resp Symptoms (Recalled from RN notes): No Skin Symptoms (Recalled from RN notes): No MS Symptoms (Recalled from RN notes): Yes Functional Status (Recalled from RN notes): WNL History of Present Illness Provider Complaint: Pt reports that she was walking her dogs a couple days ago and twisted her foot and ankle coming down the stairs. She states that the ankle will swell at times and she will limp. She states that it hurts worse if she is up on her foot for a long period of time. Related Data Home Medications Medication Instructions Recorded Confirmed atorvastatin 20 mg tablet 20 mg PO DAILY 09/09/23 09/09/23 cefdinir 300 mg capsule 300 mg PO BID 09/09/23 09/09/23 cetirizine 10 mg tablet 10 mg PO DAILY 09/09/23 09/09/23 colestipol 1 gram tablet 1 g PO DAILY 09/09/23 09/09/23 ibuprofen 600 mg tablet 600 mg PO DAILY 09/09/23 09/09/23 levocetirizine 5 mg tablet 5 mg PO DAILY 09/09/23 09/09/23 losartan 100 mg tablet 100 mg PO DAILY 09/09/23 09/09/23 metformin 500 mg tablet,extended 500 mg PO DAILY 09/09/23 09/09/23 release 24 hr nystatin 100,000 unit/gram topical 1 applic topical DAILY 09/09/23 09/09/23 ointment oxybutynin chloride 5 mg 5 mg PO DAILY 09/09/23 09/09/23 tablet,extended release 24 hr tizanidine 4 mg tablet 4 mg PO DAILY 09/09/23 09/09/23 Allergies Allergy/AdvReac Type Severity Reaction Status Date / Time ibuprofen AdvReac kidney Verified 09/02/23 10:21 failure sulfamethoxazole AdvReac kidney Verified 09/02/23 10:21 [From Bactrim] failure trimethoprim [From Bactrim] AdvReac kidney Verified 09/02/23 10:21 failure Worker's Comp Is this a Worker's Comp case?: No [facility] Disclaimer: The information contained in this section may have been updated after the patient was seen, as this information can be updated by other users. Medical History Anxiety Urinary tract infection Kidney stone Migraine Diabetes mellitus, type 2 Hypertension Surgical History History of knee surgery History of cholecystectomy Family History Mother Diabetes Grandmother Diabetes Hypertension Stroke Grandfather Heart attack Social History Smoking Status: Never smoker alcohol intake: never substance use type: denies use current occupational status: employed Travel in the last 8 weeks: None household members: children housing: house ROS Obtained: Yes All systems reviewed & no additional complaints except as documented Constitutional Constitutional: Reports system reviewed and no additional complaints, except as documented Eyes Eyes: Reports system reviewed and no additional complaints, except as documented ENT Ears, Nose, Mouth, and Throat: Reports system reviewed and no additional complaints, except as documented Cardiovascular Cardiovascular: Reports system reviewed and no additional complaints, except as documented Respiratory Respiratory: Reports system reviewed and no additional complaints, except as documented Gastrointestinal Gastrointestingal: Reports system reviewed and no additional complaints, except as documented Genitourinary Female Genitourinary: Reports system reviewed and no additional complaints, except as documented Musculoskeletal Musculoskeletal: Reports system reviewed and no additional complaints, except as documented, Reports abnormal gait, Reports arthralgias and Reports joint swelling Integumentary/Breasts Skin/Breast: Reports system reviewed and no additional complaints, except as documented Neurologic Neurologic: Reports system reviewed and no additional complaints, except as documented and Reports abnormal gait Endocrine Endocrine: Reports system reviewed and no additional complaints, except as documented Hematologic/Lymphatic Henatologic/Lymphatic: Reports system reviewed and no additional complaints, except as documented Allergic/Immunologic Allergic/Immunologic: Reports system reviewed and no additional complaints, except as documented Physical Exam General General appearance: alert and in no apparent distress Head Head exam: atraumatic and normocephalic Eye Eye exam: Present normal appearance ENT ENT exam: Present normal exam Neck Neck exam: Present normal inspection Chest Chest inspection: Present normal inspection and symmetric chest wall rise Respiratory Respiratory exam: Present normal lung sounds bilaterally Cardiovascular Cardiovascular exam: Present regular rate, normal rhythm and normal heart sounds Abdominal Exam Abdominal exam: Present soft and normal bowel sounds Extremities Exam Extremities exam: Present tenderness Expanded Lower Extremity Exam Left: Hip/Pelvis exam: Present normal inspection Upper leg exam: Present normal inspection Knee exam: Present normal inspection Lower leg exam: Present normal inspection Ankle exam: Present tenderness Foot/toe exam: Present tenderness and calcaneal tenderness Neurovascular/Tendon exam: Present normal capillary refill Gait: observed and normal Back Exam Back exam: Present normal inspection Neurological Exam Neurological exam: Present alert and oriented X3 Psychiatric Psychiatric exam: Present normal affect and normal mood Skin Skin exam: Present warm, dry and intact Lymphatic Lymphatic Findings: no adenopathy Medical Decision Making Jaime Inquiry Pt receiving controlled substance: No Jaime was queried for this patient: No Vital Signs: 09/09/23 11:40 Temperature 97.7 F Temperature Source Oral Pulse Rate [Left Brachial] 82 Respiratory Rate 20 Blood Pressure [Left Arm] 145/96 H Blood Pressure Mean [Left Arm] 112 Blood Pressure Source [Left Arm] Automatic Cuff Blood Pressure Position [Left Arm] Sitting 02 Sat by Pulse Oximetry 98 Oxygen Delivery Method Room Air Orders (Tests/Meds): ORDERS Category Date Time Status Foot XR left minimum 3 views [XR foot LT min 3V] Stat Exams 09/09/23 11:39 Taken XR ankle LT min 3V Stat Exams 09/09/23 11:39 Taken
[2023-09-09 13:26] VITALS: BP 145/96; PULSE 82; RESP 20; TEMP 36.5; O2SAT 98
--- NOTE | 2023-09-09 14:40 | PC.NURSE ---
PATIENT NOTIFIED OF X-RAY RESULTS BY Kristen CRUM APRN
== END 2023-09-09 13:32 | disposition home or self-care (01) ==
PROVIDERS: Emergency Provider Nurse Practitioner Family; PCP Family Medicine
DX: M79.672 Pain in left foot (principal); M25.572 Pain in left ankle and joints of left foot; X50.1XXA Overexertion from prolonged static or awkward postures, initial encounter
CPT/HCPCS: 73610; 73630; 99212; 99213; G0463

== ENCOUNTER 2023-11-16 12:13 | Outpatient (CLI) | payer OTHER, SELFPAY ==
--- NOTE | 2023-11-16 12:14 | XR_ITS ---
PROCEDURE INFORMATION: Exam: XR Right Ankle Exam date and time: 11/16/2023 12:18 PM Age: 38 years old Clinical indication: Pain; Ankle; Right; Additional info: Ankle pain TECHNIQUE: Imaging protocol: Radiologic exam of the right ankle. Views: 3 or more views. COMPARISON: CR XR ANKLE RT MIN 3V 01/23/2023 8:48 AM FINDINGS: Bones/joints: Osseous structures are intact. No fracture, dislocation or malalignment. Joint surfaces are perserved. There are moderate spurs arising from the posterior and plantar aspect of the calcaneus. Soft tissues: Normal. IMPRESSION: No acute bony abnormalities..
== END 2023-11-16 23:59 | disposition home or self-care (01) ==
LOC: RAD 12:14
PROVIDERS: PCP Family Medicine; Visit Provider Podiatrist
DX: M79.671 Pain in right foot (principal)
CPT/HCPCS: 73610

== ENCOUNTER 2023-11-25 11:40 | Outpatient (CLI) | payer OTHER, SELFPAY ==
[2023-11-25 16:28] LABS: Basophils # 0.1 K/mm3 (0-0.2); Eosinophils # 0.3 K/mm3 (0.0-0.4); Eosinophils % 3.2 % (0.1-12.0); Hematocrit 40.4 % (37.0-47.0); Hemoglobin 12.4 g/dL (12.2-16.2); Lymphocytes # 2.5 K/mm3 (0.7-4.5); Lymphocytes % 27.5 % (10-50); Mean Corpuscular HGB Conc 30.8 g/dL (31.8-35.4); Mean Corpuscular Volume 97.5 fl (81-99); Mean Platelet Volume 8.4 fl (7.4-10.4); Monocytes # 0.5 K/mm3 (0.1-1.0); Monocytes % 5.1 % (1.7-9.3); Neutrophils # 5.6 K/mm3 (1.8-7.8); Neutrophils % 63.2 % (37.0-80.0); Platelet Count 315 K/mm3 (142-424); Red Blood Count 4.14 M/mm3 (4.20-5.40); Red Cell Distribution Width 14.8 % (11.5-17.5); White Blood Count 8.9 K/mm3 (4.8-10.8)
[2023-11-25 17:21] LABS: Albumin Level 4.1 g/dl (3.5-5.0); Chloride 107 mmol/L (98-107); Potassium 4.1 mmoL/L (3.5-5.1); Sodium 140 mmol/L (136-145)
[2023-11-25 17:24] LABS: Alanine Aminotransferase 47 U/L (12-78); Albumin/Globulin Ratio 1.6 (1.1-1.8); Alkaline Phosphatase 127 U/L (38-126); Anion Gap 13.1 mEq/L (5-15); Aspartate Amino Transferase 53 U/L (14-36); Bilirubin,Total 0.4 mg/dl (0.2-1.3); Calcium 8.8 mg/dl (8.4-10.2); Carbon Dioxide 24 mmol/L (22.0-30.0); Globulin 2.6 g/dL (1.3-3.2); Glucose 169 mg/dl (74-100); Total Protein,Serum 6.7 g/dl (6.3-8.2)
[2023-11-25 17:26] LABS: Microalbumin/Creatinine Ratio 34.3
[2023-11-25 17:29] LABS: Blood Urea Nitrogen 23 mg/dl (7-17); Estimated Glomerular Filt Rate 56 ml/min (>60); GFR (African American) 67 ML/MIN (>60)
[2023-11-25 17:36] LABS: Hemoglobin A1C 7.6 % (4.0-6.0)
[2023-11-25 17:38] LABS: Creatinine,Urine Random 154 mg/dL (Not Estab.)
[2023-11-25 21:54] LABS: HIV (1&2) Antibody Rapid NONREACTIVE (NONREACTIVE)
[2023-11-27 08:21] LABS: HCV Ab Non Reactive (Non Reactive)
== END 2023-11-25 23:59 | disposition home or self-care (01) ==
LOC: LAB.DROPOF 11-26 09:59
PROVIDERS: PCP Nurse Practitioner Family; Visit Provider Nurse Practitioner Family
DX: Z11.59 Encounter for screening for other viral diseases (principal); E11.69 Type 2 diabetes mellitus with other specified complication; Z11.4 Encounter for screening for human immunodeficiency virus [HIV]; Z79.84 Long term (current) use of oral hypoglycemic drugs
CPT/HCPCS: 80053; 82043; 82570; 83036; 85025; 86803; 87389

== ENCOUNTER 2023-12-30 09:36 | Outpatient (CLI) | payer OTHER, SELFPAY | END 2023-12-30 23:59 | disposition home or self-care (01) | LOC: LAB.DROPOF 12-31 09:36 | PROVIDERS: PCP Family Medicine; Visit Provider Family Medicine | DX: R39.9 Unspecified symptoms and signs involving the genitourinary system (principal) | CPT/HCPCS: 87086 ==

== ENCOUNTER 2024-02-10 15:00 | Outpatient (CLI) | payer OTHER, SELFPAY | END 2024-02-10 23:59 | disposition home or self-care (01) | LOC: LAB.DROPOF 02-11 13:50 | PROVIDERS: PCP Family Medicine; Visit Provider Family Medicine | DX: N39.0 Urinary tract infection, site not specified (principal); R39.9 Unspecified symptoms and signs involving the genitourinary system | CPT/HCPCS: 87086 ==

== ENCOUNTER 2024-02-24 09:25 | Outpatient (CLI) | payer OTHER, SELFPAY ==
[2024-02-24 16:17] LABS: Basophils # 0.1 K/mm3 (0-0.2); Eosinophils # 0.3 K/mm3 (0.0-0.4); Eosinophils % 4.2 % (0.1-12.0); Hemoglobin 12.8 g/dL (12.2-16.2); Lymphocytes # 1.7 K/mm3 (0.7-4.5); Lymphocytes % 25.1 % (10-50); Mean Corpuscular HGB Conc 32.7 g/dL (31.8-35.4); Mean Corpuscular Hemoglobin 30.5 pg (27.0-31.2); Mean Corpuscular Volume 93.5 fl (81-99); Mean Platelet Volume 8.3 fl (7.4-10.4); Monocytes # 0.3 K/mm3 (0.1-1.0); Monocytes % 4.6 % (1.7-9.3); Neutrophils # 4.4 K/mm3 (1.8-7.8); Neutrophils % 65.2 % (37.0-80.0); Platelet Count 252 K/mm3 (142-424); Red Blood Count 4.18 M/mm3 (4.20-5.40); Red Cell Distribution Width 13.9 % (11.5-17.5); White Blood Count 6.8 K/mm3 (4.8-10.8)
[2024-02-24 17:03] LABS: Alanine Aminotransferase 36 U/L (12-78); Albumin Level 4.1 g/dl (3.5-5.0); Albumin/Globulin Ratio 1.7 (1.1-1.8); Alkaline Phosphatase 113 U/L (38-126); Anion Gap 14.5 mEq/L (5-15); Aspartate Amino Transferase 38 U/L (14-36); Bilirubin,Total 0.5 mg/dl (0.2-1.3); Blood Urea Nitrogen 19 mg/dl (7-17); Calcium 9.1 mg/dl (8.4-10.2); Carbon Dioxide 24 mmol/L (22.0-30.0); Chloride 106 mmol/L (98-107); Cholesterol 101 mg/dl (140-200); Estimated Glomerular Filt Rate 70 ml/min (>60); GFR (African American) 85 ML/MIN (>60); Globulin 2.4 g/dL (1.3-3.2); Glucose 146 mg/dl (74-100); HDL Cholesterol 34 mg/dl (40-60); Potassium 4.5 mmoL/L (3.5-5.1); Sodium 140 mmol/L (136-145); Total Protein,Serum 6.5 g/dl (6.3-8.2); Triglycerides 138 mg/dl (30-150); VLDL Cholesterol 28 mg/dL (0-40)
[2024-02-24 17:13] LABS: Direct LDL Cholesterol 50.81 mg/dL (100-129)
[2024-02-24 17:33] LABS: Thyroid Stimulating Hormone 1.94 uIU/mL (0.465-4.68)
[2024-02-24 17:51] LABS: Hemoglobin A1C 7.5 % (4.0-6.0)
== END 2024-02-24 23:59 | disposition home or self-care (01) ==
LOC: LAB.DROPOF 02-25 12:29
PROVIDERS: PCP Family Medicine; Visit Provider Family Medicine
DX: E11.69 Type 2 diabetes mellitus with other specified complication (principal); Z79.85 Long-term (current) use of injectable non-insulin antidiabetic drugs; Z79.84 Long term (current) use of oral hypoglycemic drugs
CPT/HCPCS: 80050; 80053; 80061; 83036; 84443; 85025

== ENCOUNTER 2024-05-29 09:47 | Outpatient (CLI) | payer OTHER, SELFPAY | END 2024-05-29 23:59 | disposition home or self-care (01) | LOC: LAB.DROPOF 06-01 12:40 | PROVIDERS: PCP Nurse Practitioner Family; Visit Provider Nurse Practitioner Family | DX: R30.0 Dysuria (principal); R39.9 Unspecified symptoms and signs involving the genitourinary system | CPT/HCPCS: 87086 ==

== ENCOUNTER 2024-09-25 08:51 | Outpatient (CLI) | payer OTHER, SELFPAY ==
--- OUTSIDE RECORDS SUMMARY | 2024-09-28 10:24 | XMS_ITS | Data Portability ---
Author Organization [facility] [place] [facility] ADMIN Address [address] [place] [phone] Assessment No assessment recorded. Plan of Treatment Reminders Order Date Submit Date Provider Last Modified By Organization Details Last Modified Time Details Appointments None recorded. Lab BMP, serum or plasma 2023 024 [email or web address] [facility] (Lab Registration) , [address] [place] [address] [place], [address], 4 07:46:31 parathyroid hormone (PTH)-relat ed peptide, serum or plasma 2023 024 [email or web address] [facility] (Lab Registration) , [address] [place] [address] [place], [address], 4 07:46:31 urinalysis, dipstick [email or web address] [facility], [facility] [place], [address], 4 17:38:41 urinalysis, dipstick [email or web address] [facility] [address], [address], 3 08:59:05 Referral None recorded. Procedures None recorded. Surgeries None recorded. Imaging CT, abdomen + pelvis, w/o contrast - PLEASE SCHD. BEFORE 10/31/2022202221/2 023 [facility] (Radiology), [address] [facility], [place], [address], 3 13:32:23 Medication Orders allopurinol 300 mg tablet 2023 024 MARIVEL [facility], [address] [place], [address], 4 12:17:18 Patient TargetsNo targets recorded. Patient InstructionsNo instructions recorded. Reason for Referral None Reported. Results Created Date Observation Date Name Description Value Unit Range Abnormal Flag Note LastModifiedBy Organization Detail LastModifiedTime 09/29/1909/28/2022 urina lysis , dipst ick Leukocytes (reference range) trace Not Available [address], [address], 09/28/2022 11:53:17 09/29/19 23 09/28/2022 urina lysis , dipst ick Nitrite (reference range:) negati ve Not Available [facility] [address], [address], 09/28/2022 11:53:17 09/29/19 23 09/28/2022 urina lysis , dipst ick Urobilinogen (reference range) 0.2 Not Available [address], [address], 09/28/2022 11:53:17 09/29/19 23 09/28/2022 urina lysis , dipst ick Protein (reference range) trace Not Available [address], [address], 09/28/2022 11:53:17 09/29/19 23 09/28/2022 urina lysis , dipst ick pH (reference range 5-8.5) 5.0 Not Available [facility] [address], [address], 09/28/2022 11:53:17 09/29/19 23 09/28/2022 urina lysis , dipst ick Blood (reference range:) small Not Available [address], [address], 09/28/2022 11:53:17 09/29/19 23 09/28/2022 urina lysis , dipst ick Specific Dupont (reference range) 1.015 Not Available [address], [address], 09/28/2022 11:53:17 09/29/19 23 09/28/2022 urina lysis , dipst ick Ketone (reference range) negati ve Not Available [address], [address], 09/28/2022 11:53:17 09/29/19 23 09/28/2022 urina lysis , dipst ick Bilirubin (reference range) negati ve Not Available [address], [address], 09/28/2022 11:53:17 09/29/19 23 09/28/2022 urina lysis , dipst ick Glucose (reference range) negati ve Not Available [address], [address], 09/28/2022 11:53:17 06/20/19 24 06/20/2023 BASIC METAB OLIC PANEL sodium 130 mmol/ L 137-14 7 low Not Available [facility] (Pre-Op Clinic) [address] [place] [address] [place], [address], 06/20/2023 09:55:22 06/20/19 24 06/20/2023 BASIC METAB OLIC PANEL potassium 3.4 mmol/ L 3.5-5. 1 low Not Available [facility] (Pre-Op Clinic) [address] [place] [address] [place], [address], 06/20/2023 09:55:22 06/20/19 24 06/20/2023 BASIC METAB OLIC PANEL chloride 106 mmol/ L 98-110 Not Available [facility] (Pre-Op Clinic) [address] [facility] [place], [address], 06/20/2023 09:55:22 06/20/19 24 06/20/2023 BASIC METAB OLIC PANEL carbon dioxide 13 mmol/ L 21-30 low Not Available [facility] (Pre-Op Clinic) [address] [facility] [place], [address], 06/20/2023 09:55:22 06/20/19 24 06/20/2023 BASIC METAB OLIC PANEL anion gap 11 mmol/ L 6-14 Not Available [facility] (Pre-Op Clinic) [address] [facility] [place], [address], 06/20/2023 09:55:22 06/20/19 24 06/20/2023 BASIC METAB OLIC PANEL glucose 106 mg/dL 70-115 Not Available [facility] (Pre-Op Clinic) [address] [place] [address] [place], [address], 06/20/2023 09:55:22 06/20/19 24 06/20/2023 BASIC METAB OLIC PANEL BUN 12 mg/dL 7-17 Not Available [facility] (Pre-Op Clinic) [address] [facility] [place], [address], 06/20/2023 09:55:22 06/20/19 24 06/20/2023 BASIC METAB OLIC PANEL creatinine 0.5 mg/dL 0.5-1. 5 Not Available [facility] (Pre-Op Clinic) [address] [place] [address] [place], [address], 06/20/2023 09:55:22 06/20/19 24 06/20/2023 BASIC METAB OLIC PANEL BUN/creatini ne ratio 24 ratio 10-20 high Not Available [facility] (Pre-Op Clinic) [address] [facility] [place], [address], 06/20/2023 09:55:22 06/20/19 24 06/20/2023 BASIC METAB OLIC PANEL glom filtration rate 147 mL/mi n >60- Not Available [facility] (Pre-Op Clinic) [address] [place] [address] [place], [address], 06/20/2023 09:55:22 06/20/19 24 06/20/2023 BASIC METAB OLIC PANEL osmolality (calculated) 271 mosmo l/kg 275-30 1 low OSMOL ALITY IS A CALCU LATIO N UTILI ZING THE SERUM /PLAS MA SODIU M, GLUCO SE AND UREA NITRO GEN (BUN) LEVEL S. FOR THE MOST ACCUR ATE RESUL T A MEASU RED SERUM OSMOL ALITY IS SUGGE STED. Not Available [facility] (Pre-Op Clinic) [address] [place] [address] [place], [address], 06/20/2023 09:55:22 06/20/19 24 06/20/2023 BASIC METAB OLIC PANEL calcium 6.9 mg/dL 8.5-10 .8 critical low Not Available [facility] (Pre-Op Clinic) [address] [place] [address] [place], [address], 06/20/2023 09:55:22 06/20/19 24 06/20/2023 BASIC METAB OLIC PANEL note Unles s other guthrie noted testi ng perfo rmed at: [facility] [address] [place] [address] Robinson yarbrough MD Not Available [facility] (Pre-Op Clinic) [address] [place] [address] [place], [address], 06/20/2023 09:55:22 06/20/19 24 06/20/2023 STONE JOSEP SIS(R ENAL CALCU LUCAS) note Unles s other guthrie noted testi ng perfo rmed at: [facility] [address] [place] [address] Robinson yarbrough MD Not Available [facility] (Pre-Op Clinic) [address] [place] [address] [place], [address], 06/27/2023 21:08:24 06/20/19 24 06/27/2023 STONE JOSEP SIS(R ENAL CALCU LUCAS) source Commja Ching y Not Available [facility] (Pre-Op Clinic) [address] [place] [address] [place], [address], 06/27/2023 21:08:24 06/20/19 24 06/27/2023 STONE JOSEP SIS(R ENAL CALCU LUCAS) color Brown Not Available [facility] (Pre-Op Clinic) [address] [place] [address] [place], [address], 06/27/2023 21:08:24 06/20/19 24 06/27/2023 STONE JOSEP SIS(R ENAL CALCU LUCAS) size 4x3 mm Multi ple piece s recei rama. Dimen sions of the large st piece repor denys. Not Available [facility] (Pre-Op Clinic) [address] [place] [address] [place], [address], 06/27/2023 21:08:24 06/20/19 24 06/27/2023 STONE JOSEP SIS(R ENAL CALCU LUCAS) weight 16 mg Not Available [facility] (Pre-Op Clinic) [address] [place] [address] [place], [address], 06/27/2023 21:08:24 06/20/19 24 06/27/2023 STONE JOSEP SIS(R ENAL CALCU LUCAS) composition Commja quinn (Repr esent s the % compo sitio n) Not Available [facility] (Pre-Op Clinic) [address] [place] [address] [place], [address], 06/27/2023 21:08:24 06/20/19 24 06/27/2023 STONE JOSEP SIS(R ENAL CALCU LUCAS) Ca oxalate monohydrate 30 % Not Available [facility] (Pre[facility]Op [facility]) [address] [place] [address] [place], [address], 06/27/2023 21:08:24 06/20/19 24 06/27/2023 STONE JOSEP SIS(R ENAL CALCU LUCAS) uric acid 70 % Not Available [facility] (Pre-Op Clinic) [address] [place] [address] [place], [address], 06/27/2023 21:08:24 06/20/19 24 06/27/2023 STONE JOSEP SIS(R ENAL CALCU LUCAS) comment Commen t . Calcu lucas recei rama wet. Wet calcu li must be dried befor e josep sis, which delay s repor ting of resul ts. Leavi ng calcu li wet (such as water , salin e, blood , urine ) may lead to medel es in compo sitio n. Not Available [facility] (Pre-Op Clinic) [address] [place] [address] [place], [address], 06/27/2023 21:08:24 06/20/19 24 06/27/2023 STONE JOSEP SIS(R ENAL CALCU LUCAS) photo Ousmane vasquez . Photo graph will larryo w under a separ ate cover Not Available [facility] (Pre-Op Clinic) [address] [place] [address] [place], [address], 06/27/2023 21:08:24 06/20/19 24 06/27/2023 STONE JOSEP SIS(R ENAL CALCU LUCAS) comment: Commja t . Physi mark quest ions regar ding Calcu li Josep sis conta ct [facility] at: [phone]. Not Available [facility] (Pre-Op Clinic) [address] [place] [address] [place], [address], 06/27/2023 21:08:24 06/20/19 24 06/27/2023 STONE JOSEP SIS(R ENAL CALCU LUCAS) please note: Ousmane vasquez . Calcu li repor t will follo w via compu ter, mail or couri er deliv ramesh. Not Available [facility] (Pre-Op Clinic) [address] [facility] [place], [address], 06/27/2023 21:08:24 06/20/19 24 06/27/2023 STONE JOSEP SIS(R ENAL CALCU LUCAS) disclaimer: Ousmane t . This test was devel oped and its perfo rmanc e suzanne cteri stics deter mined by [facility]. It has not been clear ed or appro rama by the Food and Drug Admin istra tion. Not Available [facility] (Pre-Op Clinic) [address] [place] [address] [place], [address], 06/27/2023 21:08:24 06/20/19 24 06/27/2023 STONE JOSEP SIS(R ENAL CALCU LUCAS) pdf . Perfo rmed at: [facility] [address] [place] [id number] Lab Direc tor: Aide Burdick ys PhDDA , Phone : [phone] Not Available [facility] (Pre-Op Clinic) [address] [place] [address] [place], [address], 06/27/2023 21:08:24 07/05/1907/05/2023 BASIC METAB OLIC PANEL sodium 146 mmol/ L 137-14 7 Not Available [facility] (Pre-Op Clinic) [address] [place] [address] [place], [address], 07/05/2023 18:41:47 07/05/1907/05/2023 BASIC METAB OLIC PANEL potassium 5.0 mmol/ L 3.5-5. 1 Not Available [facility] (Pre-Op Clinic) [address] [place] [address] [place], [address], 07/05/2023 18:41:47 07/05/1907/05/2023 BASIC METAB OLIC PANEL chloride 109 mmol/ L 98-110 Not Available [facility] (Pre-Op Clinic) [address] [place] [address] [place], [address], 07/05/2023 18:41:47 07/05/19 24 07/05/2023 BASIC METAB OLIC PANEL carbon dioxide 25 mmol/ L 21-30 Not Available [facility] (Pre[facility]Op Clinic) [address] [facility] [place], [address], 07/05/2023 18:41:47 07/05/19 24 07/05/2023 BASIC METAB OLIC PANEL anion gap 12 mmol/ L 6-14 Not Available [facility] (Pre[facility]Op [facility]) [address] [facility] [place], [address], 07/05/2023 18:41:47 07/05/19 24 07/05/2023 BASIC METAB OLIC PANEL glucose 109 mg/dL 70-115 Not Available [facility] (Pre-Op Clinic) [address] [facility] [place], [address], 07/05/2023 18:41:47 07/05/19 24 07/05/2023 BASIC METAB OLIC PANEL BUN 21 mg/dL 7-17 high Not Available [facility] (Pre-Op Clinic) [address] [facility] [place], [address], 07/05/2023 18:41:47 07/05/19 24 07/05/2023 BASIC METAB OLIC PANEL creatinine 0.9 mg/dL 0.5-1. 5 Not Available [facility] (Pre-Op Clinic) [address] [facility] [place], [address], 07/05/2023 18:41:47 07/05/19 24 07/05/2023 BASIC METAB OLIC PANEL BUN/creatini ne ratio 23 ratio 10-20 high Not Available [facility] (Pre-Op Clinic) [address] [facility] [place], [address], 07/05/2023 18:41:47 07/05/19 24 07/05/2023 BASIC METAB OLIC PANEL glom filtration rate 74 mL/mi n >60- Not Available [facility] (Pre-Op Clinic) [address] [facility] [place], [address], 07/05/2023 18:41:47 07/05/19 24 07/05/2023 BASIC METAB OLIC PANEL osmolality (calculated) 307 mosmo l/kg 275-30 1 high OSMOL ALITY IS A CALCU LATIO N UTILI ZING THE SERUM /PLAS MA SODIU M, GLUCO SE AND UREA NITRO GEN (BUN) LEVEL S. FOR THE MOST ACCUR ATE RESUL T A MEASU RED SERUM OSMOL ALITY IS SUGGE STED. Not Available [facility] (Pre-Op Clinic) [address] [place] [address] [place], [address], 07/05/2023 18:41:47 07/05/19 24 07/05/2023 BASIC METAB OLIC PANEL calcium 9.7 mg/dL 8.5-10 .8 Not Available [facility] (Pre-Op Clinic) [address] [place] [address] [place], [address], 07/05/2023 18:41:47 07/05/19 24 07/05/2023 BASIC METAB OLIC PANEL note Unles s other guthrie noted testi ng perfo rmed at: [facility] [address] [place] [address] Robinson yarbrough MD Not Available [facility] (Pre-Op Clinic) [address] [place] [address] [place], [address], 07/05/2023 18:41:47 07/05/19 24 07/05/2023 PTHRP (PTH- RELAT ED PEPTI DE) note Unles s other guthrie noted testi ng perfo rmed at: [facility] [address] [place] [address] Robinson yarbrough MD Not Available [facility] (Pre-Op Clinic) [address] [place] [address] [place], [address], 07/13/2023 17:09:25 07/05/19 24 07/13/2023 PTHRP (PTH- RELAT ED PEPTI DE) pthrp (PTH-related peptide) <2.0 pmol/ L This test was devel oped and its perfo rmanc e suzanne cteri stics deter mined by [facility]. It has not been clear ed or appro rama by the Food and Drug Admin istra tion. Refer ence Range : All Ages: <2.0 The PTHrP assay shoul d not be used to exclu de cance r or scree n tumor patie nts for humor al [facility] ([facility]) . The resul ts shoul d alway s be asses sed in conju nctio n with the patie nt's medic al histo ry, clini matias exami natio n, and other findi ngs. If test resul ts are clini elaina disco rdant , pleas e conta ct the labor atory . Perfo rmed at: [facility] [address] [place] [address] Lab Direc tor: Quan zaidi MD, Phone : [phone] Not Available [facility] (Pre-Op [facility]) [address] [place] [address] [place], [address], 07/13/2023 17:09:25 07/05/19 24 07/05/2023 urina lysis , dipst ick Leukocytes (reference range) negati ve Not Available [facility]rology [address] [place] [address], [address], 07/05/2023 10:26:29 07/05/19 24 07/05/2023 urina lysis , dipst ick Nitrite (reference range:) negati ve Not Available [facility] [address] [place] [address], [address], 07/05/2023 10:26:29 07/05/19 24 07/05/2023 urina lysis , dipst ick Urobilinogen (reference range) 0.[address] [facility] [address] [place] [address], [address], 07/05/2023 10:26:29 07/05/19 24 07/05/2023 urina lysis , dipst ick Protein (reference range) negati ve Not Available [address], [address], 07/05/2023 10:26:29 07/05/19 24 07/05/2023 urina lysis , dipst ick pH (reference range 5-8.5) 6.0 Not Available [facility] [address] [place] [address], [address], 07/05/2023 10:26:29 07/05/19 24 07/05/2023 urina lysis , dipst ick Blood (reference range:) hemoly zed: Trace Not Available [address], [address], 07/05/2023 10:26:29 07/05/19 24 07/05/2023 urina lysis , dipst ick Specific Dupont (reference range) 1.030 Not Available [address], [address], 07/05/2023 10:26:29 07/05/19 24 07/05/2023 urina lysis , dipst ick Ketone (reference range) negati ve Not Available [address], [address], 07/05/2023 10:26:29 07/05/19 24 07/05/2023 urina lysis , dipst ick Bilirubin (reference range) negati ve Not Available [address], [address], 07/05/2023 10:26:29 07/05/19 24 07/05/2023 urina lysis , dipst ick Glucose (reference range) negati ve Not Available [address], [address], 07/05/2023 10:26:29 07/08/19 24 07/05/2023 XR, abdom en, [facility] [address] [facility] [place] [address] [phone] (Phone ) ELA Valdez REPORT Name: CAMRYN HYMAN : 1985 Accoun t #: [id number] Age: 38 Years Patien t Type: Outpat ient Sex: F Access ion#: [id number] Exam Descri ption: REJI AMADOR 1V Exam Reason : renal stones Order Date/T tian: 2023 09:09: 00 AM Dictat ed By: Sergio vasquez MD Orderi ng Physic joce: NICOLASA LOWERY Attend ing Physic joce: NICOLASA LOWERY EXAM: REJI AMADOR 1V INDICA TION: renal stones COMPAR MARIAELENA: None. FINDIN GS: 2 views of the abdome n. One of the views is limite d due to motion . There are densit ies in the right upper quadra nt that appear to repres ent gallst ones or less likely hepati c calcif icatio ns. The locati on does not sugges t renal stones . The larger densit y measur es 1.5 cm. The smalle r densit y measur es about 6 mm.No defini te stones are seen overly ing both kidney s and along the expect ed course of the ureter s. There is a tiny pelvic phlebo lith on the left side. Otherw ise the examin ation is unrema rkable . IMPRES BREANN: 1. No defini te renal stones . 2. Probab le gallst ones. Electr onical ly signed by: Sergio vasquez MD 2023 10:27 AM EDT Workst ation: [id number] PAGE 1 OF 2 Name: CAMRYN HYMAN : 1985 Accoun t #: [id number] Age: 38 Years Patien t Type: Outpat ient Sex: F Access ion#: [id number] Exam Descri ption: ABD KUB 1V Exam Reason : renal stones Order Date/T tian: 2023 09:09: 00 AM Princi pal Interp reter Name: Sergio vasquez Provid er ID: [id number] PAGE 2 OF 2 CC'ed Logic: Orderi ng Provid er: SEBASTIÁN Tamayo CC Provid er: FRANCISCO Rose Attend ing Provid er: SEBASTIÁN Tamayo Referr ing Provid er: SEBASTIÁN Tamayo Admitt ing Provid er: SEBASTIÁN Tamayo [email or web address] [facility] (Central Scheduling) [address] [place] [address], [address], 07/13/2023 14:23:11 Result Notes Documentation Provider Name and Address Organization Details Recorded Time Xr, Abdomen, 1 View : [address] [address] (Phone) IMAGING REPORT ___ Name: CAMRYN HYMAN : 1985 Age: 38 Years Patient Type: Outpatient Sex: F Exam Description: ABD KUB 1V Exam Reason: renal stones Order Date/Time: 07/05/2023 09:09:00 AM Dictated By: Sergio Suarez MD Ordering Physician: DEBI LOWERY Attending Physician: DEBI LOWERY ___ EXAM: ABD KUB 1V INDICATION: renal stones COMPARISON: None. FINDINGS: 2 views of the abdomen. One of the views is limited due to motion. There are densities in the right upper quadrant that appear to represent gallstones or less likely hepatic calcifications. The location does not suggest renal stones. The larger density measures 1.5 cm. The smaller density measures about 6 mm.No definite stones are seen overlying both kidneys and along the expected course of the ureters. There is a tiny pelvic phlebolith on the left side. Otherwise the examination is unremarkable. IMPRESSION: 1. No definite renal stones. 2. Probable gallstones. Electronically signed by: Sergio Suarez MD 07/08/2023 10:27 AM EDT PAGE 1 OF 2 Name: CAMRYN HYMAN : 1985 Age: 38 Years Patient Type: Outpatient Sex: F Exam Description: ABD KUB 1V Exam Reason: renal stones Order Date/Time: 07/05/2023 09:09:00 AM ___ Principal [employer] Laboratory Assistant Name: Sergio Suarez Provider ID: [id number] PAGE 2 OF 2 CC'ed Logic: Ordering Provider: SEBASTIÁN CARRERA CC Provider: MARCELLA ZABALA Attending Provider: SEBASTIÁN CARRERA Referring Provider: SEBASTIÁN CARRERA Admitting Provider: SEBASTIÁN Lowery Jr, MD [address] [place] [address], [address], [place], [address] [place] - [facility] - [place] [facility] [place] 07/13/2023 14:23:11 Problems Name Problem SNOMED Code Status Onset Date Resolution Date Notes Provider Name and Address Organization Details Recorded Time Hypertensive disorder 89461364 Active 2022 Taj barraza, [place] - [facility] - [place] [facility] [place] 3 11:19:01 Diabetes mellitus 44747194 Active 2022 Taj bar[place]za, [place] - [facility] [place] 3 11:19:07 Kidney stone 59876561 Active 2023 Taj bar[place], [place] - [facility] [place] 4 09:56:53 Problem Notes None recorded. Procedures Surgical History Date Name Laterality Status Provider Name and Address Organization Details Recorded Time procedure on knee completed Taj Martínez [place] - [facility] - [place] [facility] [place] 09/28/2022 11:20:03 Cholecystectomy completed Sravanthi ANDERSON - [facility] - [place] [facility] [place] 03/06/2022 15:59:06 extraction of wisdom tooth completed Sravanthi Mary [place] - [facility] - [place] [facility] [place] 03/06/2022 15:59:15 Imaging Results None recorded. Procedure Notes None recorded. Medical Equipment None Reported. Allergies No known drug allergies Medications Name Sig Start Date Stop Date Status Note LastModified by Organization Details LastModified Time amoxicillin 500 mg capsule active Not Available Not Available Not Available acetaminophe n 325 mg tablet active Not Available Not Available Not Available atorvastatin 20 mg tablet Take 1 tablet every day by oral route. active Not Available Not Available No t Available triamcinolon e acetonide 0.5 % topical cream active Not Available Not Available Not Available cetirizine 10 mg tablet active Not Available Not Available Not Available azithromycin 250 mg tablet active Not Available Not Available Not Available ibuprofen 800 mg tablet active Not Available Not Available Not Available tizanidine 4 mg tablet active Not Available Not Available No t Available fluconazole 150 mg tablet active Not Available Not Available Not Available promethazine 12.5 mg tablet 09/28 completed Not Available Not Available Not Available ondansetron HCl 4 mg tablet 09/28 completed Not Available Not Available Not Available prednisone 20 mg tablet active Not Available Not Available Not Available clindamycin HCl 150 mg capsule active Not Available Not Available Not Available ciprofloxaci n 500 mg tablet 09/28 completed Not Available Not Available Not Available sulfamethoxa zole 800 mg-trimethop rim 160 mg tablet active Not Available Not Available Not Available acetaminophe n 500 mg tablet active Not Available Not Available Not Available meloxicam 7.5 mg tablet active Not Available Not Available Not Available oxycodone-ac etaminophen 5 mg-325 mg tablet active Not Available Not Available Not Available amoxicillin 875 mg tablet 09/28 completed Not Available Not Available Not Available tamsulosin 0.4 mg capsule active Not Available Not Available Not Available oseltamivir 75 mg capsule 09/28 completed Not Available Not Available Not Available metformin 1,000 mg tablet Take 1 tablet every day by oral route. 09/28 completed Not Available Not Available Not Available promethazine 25 mg tablet active Not Available Not Available Not Available hydrochlorot hiazide 12.5 mg capsule Take 1 capsule every day by oral route. active Not Available Not Available No t Available oxybutynin chloride ER 5 mg tablet,exten ded release 24 hr active Not Available Not Available Not Available allopurinol 300 mg tablet TAKE 1 TABLET BY MOUTH EVERY DAY active Not Available Not Available No t Available ibuprofen 600 mg tablet active Not Available Not Available Not Available methylpredni solone 4 mg tablets in a dose pack active Not Available Not Available No t Available brompheniram ine-pseudoep hedrine-DM 2 mg-30 mg-10 mg/5 mL oral syrup active Not Available Not Available Not Available ondansetron 4 mg disintegrati ng tablet active Not Available Not Available No t Available cefdinir 300 mg capsule Take 1 capsule every 12 hours by oral route for 7 days. active Not Available Not Available No t Available losartan 100 mg tablet Take 1 tablet every day by oral route. active Not Available Not Available No t Available fluticasone propionate 50 mcg/actuatio n nasal spray,suspen breann 09/28 completed Not Available Not Available Not Available metformin ER 500 mg tablet,exten ded release 24 hr active Not Available Not Available Not Available colestipol 1 gram tablet Take 2 tablets twice a day by oral route. active Not Available Not Available No t Available amoxicillin 875 mg-potassium clavulanate 125 mg tablet 09/28 completed Not Available Not Available Not Available Ventolin HFA 90 mcg/actuatio n aerosol inhaler active Not Available Not Available Not Available levocetirizi ne 5 mg tablet active Not Available Not Available Not Available Flowflex COVID-19 Antigen Home Test kit active Not Available Not Available Not Available Vitals Date Recorded Body height Body mass index (BMI) Body weight Body temperature Provider Name and Address Organization Details Last Updated DateTime 06/04/2023 167.64 cm 47.1 kg/m2 343714.97 g 98.1 [degF] Taj Martínez [facility] & [place] 06/04/2023 09:56:26 Date Recorded Body height Body mass index (BMI) Body weight Body temperature Provider Name and Address Organization Details Last Updated DateTime 07/05/2023 167.64 cm 35.5 kg/m2 01443.32 g 97.6 [degF] Nadine Baumann [facility] & [place] 07/05/2023 09:46:03 Date Recorded Body height Body mass index (BMI) Body weight Body temperature Provider Name and Address Organization Details Last Updated DateTime 09/28/2022 167.64 cm 48.7 kg/m2 081990.9 g 98.1 [degF] Taj Martínez [facility] & [place] 09/28/2022 11:15:07 Date Recorded Body height Body mass index (BMI) Body weight Provider Name and Address Organization Details Last Updated DateTime 01/23/2023 167.64 cm 50 kg/m2 313889.63 g Hillary Felton [facility] & [place] 01/23/2023 12:57:07 Social History Question Answer Notes LastModified by Organizat ion Details LastModified Time Tobacco Smoking Status Never Smoker Not Available [facility] 08/07/2022 15:59:20 If You Are , What Was Your Level Of Alcohol Consumption Prior To ? None [email or web address] Information not available 04/02/2023 Sex: Unknown Functional Status Question Answer Note LastModified by Organizat ion Details LastModified Time Do you use any illicit or recreational drugs? No CHART[employer] Information not available 08/07/2022 What is your level of alcohol consumption? None CH[employer] Information not available 08/07/2022 Mental Status None recorded. Family History Relationship Description Onset Age of this Age Resolved Age Notes LastModified by Organization Details LastModified Time Mother Diabetes mellitus [facility] Not available 07/04 09:43:29 Mother Hypertensive disorder CHART_MERGE Not available 07/11 15:59:20 Maternal Grandmother Diabetes mellitus [facility] Not available 07/04 09:43:29 Maternal Grandmother Hypertensive disorder CH[employer] Not available 07/11 15:59:20 Maternal Grandmother Cerebrovascu lar accident CH[employer] Not available 0 08/07/2022 15:59:20 Maternal Grandmother Chronic obstructive pulmonary disease CH[employer] Not available 07/11 15:59:20 Maternal Grandfather Heart disease CHART[employer]MER[facility] Not available 07/11 15:59:20 Father Family history unknown [facility] Not available 07/04 09:43:29 Brother [facility] Not available 07/04 09:43:29 Sister Family history unknown [facility] Not available 07/04 09:43:29 Medical History Condition Response Diabetes Y Headaches Y Hypertension Y Kidney Stones Y Gynecological HistoryNo gynecological history recorded. Obstetrics History GPAL:G 0 P 0 0 0 0 Past Encounters Encounter ID Performer Location Encounter Start Date Encounter Closed Date Diagnosis/Indication Diagnosis SNOMED-CT Code Diagnosis ICD10 Code Diagnosis Note [id number] Debi Lowery Jr, MD [facility] [address] [address] 09/28/2022 10:56:20 09/28/2022 11:50:24 Kidney stone 82358589 N20.0 Patient with history of kidney stone on CT scan a year ago. Will repeat his scan to evaluate. Pyelonephritis 91693517 N12 patient with history of 2 kidney infections over the past year. Her symptom of right-side d flank pain seems to be more of her right hip thin in the right flank. We discussed the difference between the 2 areas. She is currently asymptomat ic. We will perform a CT scan to evaluate for any obstructio n or possible cause for kidney infections . [id number] Debi Lowery Jr, MD [facility] [address] [place] [address] [facility] [place] [address] 06/04/2023 09:00:53 06/04/2023 10:25:08 Kidney stone 74201541 N20.0 Pt with 1.2 cm stone at R UPJ. We discussed treatment options and ESWL with stent kasia hidalgo. She wishes to proceed and will set up scott. [id number] Debi Lowery Jr, MD [facility] [address] [place] [address] [facility] [place] [address] 07/05/2023 09:43:17 07/05/2023 10:16:13 Kidney stone 40166954 N20.0 Patient with 1.2 cm right renal pelvic stone status post right ureterosco py, laser lithotrips y, stone extraction and right stent placement on June 19. Her stent was inadverten tly removed yesterday. KUB today shows no evidence of stones along the course of the right collecting system. Stent is not visible. Her stone analysis from her recent procedure showed a 70% uric acid compositio n and 30% calcium oxalate compositio n. We discussed treatment options and a prescripti on for allopurino l 300 mg was given today. Also discussed drinking at least 60 oz of fluid per day. Hypocalcemia [id number] E83 .51 patient's calcium level at the time of her recent procedure was critically low. We will recheck a calcium level day as well as a parathyroi d hormone. Health Concerns Section Related Observation LastModified by Organization Detai ls LastModified Time None Recorded Concern Status LastModified by Organization Details LastModified Time None Recorded Advance Directives Directive None Recorded Payers Insurance Date Sequence Insurance Name Policy Number Policy Lopez Covered Member ID Lopez Member ID Guarantor Name 09/28/2023 1 [employer] [facility] (MEDICAID HMO) Camryn Hyman [id number] Camryn Hyman Notes Date Note Type Note Provider Name and Address Organization Details Recorded Time 09/28/2022 text/html patient is a 37-year-old white female referred for history of kidney infection and kidney stones. Patient states she was hospitalized a year ago at [facility] for urosepsis. CT scan at that time showed evidence of pyelonephritis and stone. She was seen by her primary care physician August 03 and treated for a urinary tract infection. Her urine culture at that visit showed 20,000 E coli and 20,000 Citrobacter. A urine culture in May had shown 100,000 E coli in 100,000 Klebsiella. She is asymptomatic today and her urinalysis is within normal limits.Patient with a history of urgency and nocturia. She is on oxybutynin 5 mg a day with good results.She states symptoms of her pyelonephritis are some pain in her right side. When questioned on the pain today the pain seems to be more over her hip and she is tender over that area. Debi Lowery Jr, MD [address] [place] [address], [address], [address], [facility] & [place] 09/28/2022 15:26:59 06/04/2023 text/html Pt with h/o kidn ey stones and pyelo. She states she was in the ER at [facility] on 05/31/23. She states her Cr was 4.9 and she was transferred to [facility] for Nephrology consult. CT scan performed there showed a 1.2 cm stone at the R UPJ with moderate hydro. Her wbc was wnl and Cr improved with hydration. She states she had some mild discomfort at the time. Urine cx negative.I saw the patient 09/2022 for kidney stones and CT was ordered at that time but pt did not follow through. She is feeling well today. Debi Lowery Jr, MD [address], [address], [place], [address], [facility] [place] 06/05/2023 17:59:27 07/05/2023 text/html Patient is a 38-year-old white female history of nephrolithiasis. She underwent recent right ureteroscopy, laser lithotripsy of a 1.2 cm right renal pelvic stone. Right stent was placed after the procedure. She had been set up for ESWL but the machine would work that day. Patient states that her stent was accidentally removed yesterday. Brings in a significant amount of stone fragments today. A KUB today shows no evidence of stones in the collecting system. She denies any pain or discomfort. She had initially presented to the emergency room in [facility] was found to have renal failure and the right renal stone. Her renal function improved with hydration. Her calcium level was critically low the time of her stone extraction. Debi Lowery Jr, MD [address] [place] [address], [address], [place], [address], [place] - [facility] - [place] & [place] 07/05/2023 12:15:16 OBGyn Episode No OBEpisode recorded.
== END 2024-09-25 23:59 | disposition home or self-care (01) ==
LOC: LAB.DROPOF 09-28 10:19
PROVIDERS: PCP Family Medicine; Visit Provider Family Medicine
DX: R39.9 Unspecified symptoms and signs involving the genitourinary system (principal)
CPT/HCPCS: 87086; 87088; 87186

== ENCOUNTER 2024-11-10 13:31 | Outpatient (CLI) | payer OTHER, SELFPAY | END 2024-11-10 23:59 | disposition home or self-care (01) | LOC: LAB.DROPOF 11-12 12:27 | PROVIDERS: PCP Family Medicine; Visit Provider Family Medicine | DX: N39.0 Urinary tract infection, site not specified (principal) | CPT/HCPCS: 87086; 87088; 87186 ==

== ENCOUNTER 2025-02-26 11:24 | Outpatient (CLI) | payer OTHER, SELFPAY | END 2025-02-26 23:59 | disposition home or self-care (01) | LOC: LAB.DROPOF 02-27 09:35 | PROVIDERS: PCP Family Medicine; Visit Provider Nurse Practitioner Family | DX: N39.0 Urinary tract infection, site not specified (principal) | CPT/HCPCS: 87086 ==